=== PATIENT | female | born 1935 | race Caucasian/White ===

== ENCOUNTER 2017-07-26 19:40 | Inpatient (IN) | payer MEDICARE, BC ==
[~2017-07-26] VITALS: Ht 165.1 cm; Wt 77.8 kg
[~2017-07-26 19:40] MED LIST: AMLO2.5T PO; PROP40TA3 PO; WARF-60 PO
[2017-07-26 19:49] VITALS: BP 179/96; PULSE 115; RESP 26; TEMP 98.7; O2SAT 87
[2017-07-26] MEDS: RESP: ALBUTEROL 2.5 MG/IPRATROPIUM 0.5 MG NEB (SCH) INH (20:10)
[2017-07-26 20:11] VITALS: O2SAT 92
[2017-07-26] MEDS ORDERED: ONDANSETRON HCL 4 MG/2 ML VIAL IV PUSH ONE (20:15)
[2017-07-26] MEDS ORDERED: MORPHINE SULFATE 4 MG/ML INJ IV PUSH ONE ×2 (20:15→22:30)
[2017-07-26] MEDS ORDERED: AMLO2.5T PO (20:20)
[2017-07-26] MEDS ORDERED: PROP40TA3 PO (20:20)
[2017-07-26] MEDS ORDERED: WARF-60 PO (20:20)
--- NOTE | 2017-07-26 20:24 | PD ---
HPI Chief Complaint: Fall Time Seen by Provider: 20:00 Travel History International Travel<30 days: No Contact w/Intl Traveler<30days: No Traveled to known affect area: No History of Present Illness HPI 82-year-old female presents for evaluation of a mechanical fall. She reports that today she was attempting to open a reclining chair when it knocked her over and she landed on her left hip. Denies any head trauma or loss of consciousness. She is complaining of left hip pain which is constant, sharp, worse with movement. Denies headache, neck pain, back pain, chest pain or shortness of breath, nausea or vomiting. She appears to have a history of interstitial lung disease. Pulse oximetry is noted to be 89% on room air, she had a pulmonary function test on May 26, 2016 revealing a baseline oxygen saturation of 89% on room air. She is not on home oxygen. No other complaints. PFSH Past Medical History Hx Anticoagulant Therapy: Yes Arthritis: Yes (LEFT ANKLE & LEFT KNEE.) Asthma: No Atrial Fibrillation: Yes Autoimmune Disease: No Blood Disorders: No Anxiety: Yes Heart Rhythm Problems: Yes (A-FIB) Cancer: No Cardiovascular Problems: Yes (A-FIB) High Cholesterol: No Chest Pain: Yes COPD: No Cerebrovascular Accident: Yes (TIA 1996) Diabetes: No Diminished Hearing: Yes Endocrine: No GERD: Yes Glaucoma: No Genitourinary: Yes Hepatitis: No Hiatal Hernia: No Hypertension: Yes Immune Disorder: No Musculoskeletal: Yes (ARTHRITIS L KNEE) Neurologic: Yes (CENTRAL TERMORS) Psychiatric: No Reproductive: No Respiratory: Yes Sleep Apnea: No Ulcer: No Tetanus Vaccination: Unknown Influenza Vaccination: No ?: Not Menopausal: Yes : 2 Para: 2 Past Surgical History Abdominal Surgery: Yes (HERNIA REPAIR) Appendectomy: Yes Cardiac Surgery: Yes (PACER) Cholecystectomy: Yes ( A TEENAGER. QUESTIONABLE) Ear Surgery: No Endocrine Surgery: No Eye Surgery: Yes (BILATERAL CATARACT SURGERY.) Genitourinary Surgery: No Gynecologic Surgery: Yes (2 LIVE, VAGINAL BIRTHS.) Insulin Pump: No Joint Replacement: No Oral Surgery: Yes (HX 3 TOOTH EXTRACTIONS.) Pacemaker: Yes (ON DEMAND) Thoracic Surgery: Yes (VOCAL CORDS REPAIR 2-4-16) Tonsillectomy: Yes Other Surgery: Yes (UMBILICAL HERNIA REPAIR; VOCAL CHORD SURGERY) Social History Alcohol Use: No Tobacco Use: No Substance Use: No Allergies-Medications (Allergen,Severity, Reaction): Coded Allergies: Sulfa (Sulfonamide Antibiotics) (Unverified Allergy, Severe, Anaphylaxis, 07/26/17) shellfish derived (Unverified Allergy, Severe, EDEMA, 07/26/17) FACIAL cortisone (Unverified Allergy, Intermediate, 07/26/17) Reported Meds & Prescriptions Reported Meds & Active Scripts Active Reported Propranolol (Propranolol HCl) 40 Mg Tab 40 Mg PO DAILY Warfarin 6 Mg Tab 6 Mg PO DAILY Amlodipine (Amlodipine Besylate) 2.5 Mg Tab 2.5 Mg PO DAILY Review of Systems Except as stated in HPI: all other systems reviewed are Neg Physical Exam Narrative GENERAL: Well-developed well-nourished female in no acute distress cervical collar in place laying on backboard. Log rolled off the backboard using spinal precautions. SKIN: Warm and dry. No open wounds, no bruising or soft tissue swelling. HEAD: Atraumatic. Normocephalic. EYES: Pupils equal and round. No scleral icterus. No injection or drainage. ENT: No nasal bleeding or discharge. Mucous membranes pink and moist. NECK: Trachea midline. No JVD. CARDIOVASCULAR: Regular rate and rhythm. No murmur appreciated. RESPIRATORY: No accessory muscle use. Coarse breath sounds bilaterally. GASTROINTESTINAL: Abdomen soft, non-tender, nondistended. Hepatic and splenic margins not palpable. MUSCULOSKELETAL: No obvious deformities. Pain with attempted range of motion of the left hip. Tender to palpation left hip. No tenderness to palpation along the cervical thoracic or lumbar midline spine. 2+ dorsalis pedis pulse bilaterally. NEUROLOGICAL: Awake and alert. No obvious cranial nerve deficits. Motor grossly within normal limits. Normal speech. PSYCHIATRIC: Appropriate mood and affect; insight and judgment normal. Data Data Last Documented VS Vital Signs Date Time Temp Pulse Resp B/P (MAP) Pulse Ox O2 Delivery O2 Flow Rate FiO2 07/27/17 01:00 114 18 137/90 (106) 89 Nasal Cannula 4.00 07/26/17 19:49 98.7 Orders Orders Complete Blood Count With Diff (07/26/17 20:01) Basic Metabolic Panel (Bmp) (07/26/17 20:01) Act Partial Throm Time (Ptt) (07/26/17 20:01) Prothrombin Time / Inr (Pt) (07/26/17 20:01) Magnesium (Mg) (07/26/17 20:01) Iv Access Insert/Monitor (07/26/17 20:01) Electrocardiogram (07/26/17 20:01) Ecg Monitoring (07/26/17 20:01) Oximetry (07/26/17 20:01) Oxygen Administration (07/26/17 20:01) Chest, Single Ap (07/26/17 20:01) Albuterol-Ipratropium Neb (Duoneb Neb) (07/26/17 20:15) Hip, Uni(Ap&Lat) W Ap Pelvis (07/26/17 ) Morphine Inj (Morphine Inj) (07/26/17 20:15) Ondansetron Inj (Zofran Inj) (07/26/17 20:15) Diltiazem Inj (Cardizem Inj) (07/26/17 22:15) Ct Hip W/O Contrast (07/26/17 ) Morphine Inj (Morphine Inj) (07/26/17 22:30) Diltiazem Inj (Cardizem Inj) (07/26/17 22:45) Consult Orthopedic (07/27/17 ) Metoprolol Tartrate Inj (Lopressor Inj) (07/27/17 01:00) NPO (07/27/17 01:00) Morphine Inj (Morphine Inj) (07/27/17 01:00) Dext 5%-Nacl 0.45% 1000 Ml Inj (D5w-1/2 (07/27/17 01:15) (Hub Use Only)Inp Phy Cons/Ref (07/27/17 ) Admit To Inpatient (07/27/17 ) Vital Signs (Adult) Q4H (07/27/17 01:14) Activity Bed Rest (07/27/17 01:14) Curriculum Manager / Telemetry .CONTINUOUS (07/27/17 01:14) Intake + Output STACIE.QSHIFT (07/27/17 01:14) Diet Npo (07/27/17 Breakfast) Sodium Chloride 0.9% Flush (Ns Flush) (07/27/17 01:15) Sodium Chloride 0.9% Flush (Ns Flush) (07/27/17 09:00) Basic Metabolic Panel (Bmp) (07/27/17 06:00) Complete Blood Count With Diff (07/27/17 06:00) Pt Request For Service (07/27/17 01:14) Case Management Consult (07/27/17 01:14) Naloxone Inj (Narcan Inj) (07/27/17 01:15) Inpatient Certification (07/27/17 ) Admit Order (Ed Use Only) (07/27/17 02:02) Labs Laboratory Tests Test 07/26/17 20:10 White Blood Count 8.0 TH/MM3 Red Blood Count 3.91 MIL/MM3 Hemoglobin 12.4 GM/DL Hematocrit 36.5 % Mean Corpuscular Volume 93.3 FL Mean Corpuscular Hemoglobin 31.8 PG Mean Corpuscular Hemoglobin Concent 34.0 % Red Cell Distribution Width 13.7 % Platelet Count 216 TH/MM3 Mean Platelet Volume 8.4 FL Neutrophils (%) (Auto) 73.7 % Lymphocytes (%) (Auto) 14.9 % Monocytes (%) (Auto) 8.1 % Eosinophils (%) (Auto) 2.7 % Basophils (%) (Auto) 0.6 % Neutrophils # (Auto) 5.9 TH/MM3 Lymphocytes # (Auto) 1.2 TH/MM3 Monocytes # (Auto) 0.7 TH/MM3 Eosinophils # (Auto) 0.2 TH/MM3 Basophils # (Auto) 0.1 TH/MM3 CBC Comment DIFF FINAL Differential Comment Prothrombin Time 18.3 SEC Prothromb Time International Ratio 1.6 RATIO Activated Partial Thromboplast Time 30.6 SEC Blood Urea Nitrogen 16 MG/DL Creatinine 0.96 MG/DL Random Glucose 208 MG/DL Calcium Level 8.7 MG/DL Magnesium Level 2.0 MG/DL Sodium Level 136 MEQ/L Potassium Level 3.9 MEQ/L Chloride Level 104 MEQ/L Carbon Dioxide Level 24.0 MEQ/L Anion Gap 8 MEQ/L Estimat Glomerular Filtration Rate 56 ML/MIN MDM Medical Decision Making Medical Screen Exam Complete: Yes Emergency Medical Condition: Yes Medical Record Reviewed: Yes Differential Diagnosis Hip fracture, dislocation, contusion, retroperitoneal hematoma Narrative Course 82-year-old female presents after mechanical fall with left hip pain. She is awake and alert and provides excellent history. On examination she has pain with passive manipulation of the left hip. She has no tenderness to palpation along the neck or back and no evidence of head trauma. Plan is for basic lab work, EKG, hips/pelvis x-ray. EKG reveals atrial fibrillation with RVR with a rate of 1:15, she does have a history of atrial fibrillation appears to be on propranolol and Coumadin. She was given a diltiazem bolus and her improved into the 90s. Hip/pelvis x-ray reveals CONCLUSION: 1. Due to patient positioning, trochanteric spurring and internal rotation of the left femur, the hip is incompletely evaluated. No obvious fracture on the cross table lateral, however. 2. I would recommend CT scan of the left hip for further characterization. Therefore CT of the hip has been ordered. INR is subtherapeutic at 1.6. 2300: At the end of my shift the patient was signed out to my attending physician pending CT imaging. Marc Patel Jul 26, 2017 20:24
[2017-07-26 20:41] LABS: AUTOMATED NEUTROPHIL # 5.9 TH/MM3 (1.8-7.7); BASOPHIL # 0.1 TH/MM3 (0-0.2); BASOPHIL % 0.6 % (0.0-2.0); EOSINOPHIL # 0.2 TH/MM3 (0-0.4); EOSINOPHIL % 2.7 % (0.0-4.0); HEMATOCRIT 36.5 % (35.0-46.0); HEMO FLAGS DIFF FINAL; LYMPH % 14.9 % (9.0-44.0); LYMPHOCYTE # 1.2 TH/MM3 (1.0-4.8); MEAN CELL VOLUME 93.3 FL (80.0-100.0); MEAN CORPUSCULAR HEMOGLOBIN 31.8 PG (27.0-34.0); MONO % 8.1 % (0.0-8.0); NEUT % 73.7 % (16.0-70.0); PLATELET COUNT 216 TH/MM3 (150-450); RED BLOOD COUNT 3.91 MIL/MM3 (4.00-5.30); RED CELL DISTRIBUTION WIDTH 13.7 % (11.6-17.2)
[2017-07-26 20:47] LABS: APTT (PATIENT) 30.6 SEC (24.3-30.1); INTERNATIONAL NORMALIZED RATIO 1.6 RATIO; PROTHROMBIN TIME - PATIENT 18.3 SEC (9.8-11.6)
[2017-07-26 20:53] LABS: POTASSIUM 3.9 MEQ/L (3.5-5.1)
--- NOTE | 2017-07-26 22:03 | RADRPT ---
EXAM DATE/TIME: 07/26/2017 21:15 [facility] COMPARISON: CHEST SINGLE AP, May 09, 2016, 10:35. INDICATIONS : Left hip pain status post fall today. MEDICAL HISTORY : Afib. Tremors. SURGICAL HISTORY : Ankle surgery, left. Pacemaker. Appendectomy. Tonsillectomy. Umbilical hernia repair. ENCOUNTER: Initial ACUITY: 1 day PAIN SCORE: 10/10 LOCATION: Left hip. FINDINGS: A single view of the chest demonstrates stable interstitial prominence throughout both lungs suggesti ng some degree of fibrosis. No confluent infiltrate or effusion. Heart size is prominent. Left subcla vian unipolar pacer is radiographically intact. Degenerative spurring of the dorsal spine. Osseous st ructures are otherwise intact. CONCLUSION: 1. Stable interstitial prominence suggesting some degree of fibrosis. No superimposed acute infiltrat e. 2. Compensated cardiomegaly Alo Weiner MD on July 26, 2017 at 21:59 Board Certified Radiologist. This report was verified electronically.
--- NOTE | 2017-07-26 22:10 | RADRPT ---
EXAM DATE/TIME: 07/26/2017 21:15 [facility] COMPARISON: No previous studies available for comparison. INDICATIONS : Left hip pain status post fall today. MEDICAL HISTORY : Afib. Tremors. SURGICAL HISTORY : Ankle surgery, left. Pacemaker. Appendectomy. Tonsillectomy. Umbilical hernia repair. ENCOUNTER: Initial ACUITY: 1 day PAIN SCORE: 10/10 LOCATION: Left hip. FINDINGS: Examination of the left hip was performed with AP Pelvis. On the frontal projections, the hip appears to be held in internal rotation and therefore, is poorly profiled. There appears to be a prominent g reater trochanteric spur which obscures the anatomic neck. I was concern that there may be a step off at the base of the neck however, on the cross table lateral, the neck is well profiled and I cannot confirm an obvious fracture in this projection. CONCLUSION: 1. Due to patient positioning, trochanteric spurring and internal rotation of the left femur, the hip is incompletely evaluated. No obvious fracture on the cross table lateral, however. 2. I would recommend CT scan of the left hip for further characterization. Alo Weiner MD on July 26, 2017 at 22:01 Board Certified Radiologist. This report was verified electronically.
[2017-07-26] MEDS ORDERED: DILTIAZEM HCL 25 MG/5 ML VIAL IV PUSH ONE ×2 (22:15→22:45)
--- NOTE | 2017-07-26 23:30 | RADRPT ---
EXAM DATE/TIME: 07/26/2017 23:02 [facility] COMPARISON: HIP LEFT (AP&LAT 2/3VWS) W AP PELVIS, July 26, 2017, 21:15. INDICATIONS : Evaluate left hip fracture. RADIATION DOSE: 21.29 CTDIvol (mGy) MEDICAL HISTORY : Cerebrovascular disease. SURGICAL HISTORY : Pacemaker. ENCOUNTER: Initial ACUITY: 1 day PAIN SCALE: 10/10 LOCATION: Left hip TECHNIQUE: Volumetric scanning of the hip was performed. Using automated exposure control and adjustment of the mA and/or kV according to patient size, radiation dose was kept as low as reasonably achievable to o btain optimal diagnostic quality images. DICOM format image data is available electronically for rev iew and comparison. FINDINGS: BONES: There is fracturing at the left subcapital femoral neck region. No other fracture seen. JOINTS: No evidence of joint narrowing or effusion. SOFT TISSUES: Muscles, tendons and neurovascular structures are grossly unremarkable. No evidence of mass, organize d fluid collection, or foreign body. CONCLUSION: Left subcapital femoral neck fracture. Viral Steiner MD on July 26, 2017 at 23:27 Board Certified Radiologist. This report was verified electronically.
[2017-07-27] VITALS (11 sets, daily range): BP systolic 137–176; BP diastolic 79–94; PULSE 83–126; RESP 15–20; O2SAT 89–95
--- NOTE | 2017-07-27 00:46 | PD ---
Physical Exam Date Seen by Provider: Jul 26, 2017 Time Seen by Provider: 00:23 Narrative pt has femoral neck fracture and needs admit for rapid afib and orthopedic surgery Data Data Last Documented VS Vital Signs Date Time Temp Pulse Resp B/P (MAP) Pulse Ox O2 Delivery O2 Flow Rate FiO2 07/26/17 20:11 92 Nasal Cannula 4.00 07/26/17 19:55 26 07/26/17 19:49 98.7 115 179/96 (123) Orders Orders Complete Blood Count With Diff (07/26/17 20:01) Basic Metabolic Panel (Bmp) (07/26/17 20:01) Act Partial Throm Time (Ptt) (07/26/17 20:01) Prothrombin Time / Inr (Pt) (07/26/17 20:01) Magnesium (Mg) (07/26/17 20:01) Iv Access Insert/Monitor (07/26/17 20:01) Electrocardiogram (07/26/17 20:01) Ecg Monitoring (07/26/17 20:01) Oximetry (07/26/17 20:01) Oxygen Administration (07/26/17 20:01) Chest, Single Ap (07/26/17 20:01) Albuterol-Ipratropium Neb (Duoneb Neb) (07/26/17 20:15) Hip, Uni(Ap&Lat) W Ap Pelvis (07/26/17 ) Morphine Inj (Morphine Inj) (07/26/17 20:15) Ondansetron Inj (Zofran Inj) (07/26/17 20:15) Diltiazem Inj (Cardizem Inj) (07/26/17 22:15) Ct Hip W/O Contrast (07/26/17 ) Morphine Inj (Morphine Inj) (07/26/17 22:30) Diltiazem Inj (Cardizem Inj) (07/26/17 22:45) Consult Orthopedic (07/27/17 ) Metoprolol Tartrate Inj (Lopressor Inj) (07/27/17 01:00) NPO (07/27/17 01:00) Morphine Inj (Morphine Inj) (07/27/17 01:00) Dext 5%-Nacl 0.45% 1000 Ml Inj (D5w-1/2 (07/27/17 01:15) (Hub Use Only)Inp Phy Cons/Ref (07/27/17 ) Admit To Inpatient (07/27/17 ) Vital Signs (Adult) Q4H (07/27/17 01:14) Activity Bed Rest (07/27/17 01:14) Forms Builder / Telemetry .CONTINUOUS (07/27/17 01:14) Intake + Output STACIE.QSHIFT (07/27/17 01:14) Diet Npo (07/27/17 Breakfast) Sodium Chloride 0.9% Flush (Ns Flush) (07/27/17 01:15) Sodium Chloride 0.9% Flush (Ns Flush) (07/27/17 09:00) Basic Metabolic Panel (Bmp) (07/27/17 06:00) Complete Blood Count With Diff (07/27/17 06:00) Pt Request For Service (07/27/17 01:14) Case Management Consult (07/27/17 01:14) Naloxone Inj (Narcan Inj) (07/27/17 01:15) Inpatient Certification (07/27/17 ) Admit Order (Ed Use Only) (07/27/17 02:02) Labs Laboratory Tests Test 07/26/17 20:10 White Blood Count 8.0 TH/MM3 Red Blood Count 3.91 MIL/MM3 Hemoglobin 12.4 GM/DL Hematocrit 36.5 % Mean Corpuscular Volume 93.3 FL Mean Corpuscular Hemoglobin 31.8 PG Mean Corpuscular Hemoglobin Concent 34.0 % Red Cell Distribution Width 13.7 % Platelet Count 216 TH/MM3 Mean Platelet Volume 8.4 FL Neutrophils (%) (Auto) 73.7 % Lymphocytes (%) (Auto) 14.9 % Monocytes (%) (Auto) 8.1 % Eosinophils (%) (Auto) 2.7 % Basophils (%) (Auto) 0.6 % Neutrophils # (Auto) 5.9 TH/MM3 Lymphocytes # (Auto) 1.2 TH/MM3 Monocytes # (Auto) 0.7 TH/MM3 Eosinophils # (Auto) 0.2 TH/MM3 Basophils # (Auto) 0.1 TH/MM3 CBC Comment DIFF FINAL Differential Comment Prothrombin Time 18.3 SEC Prothromb Time International Ratio 1.6 RATIO Activated Partial Thromboplast Time 30.6 SEC Blood Urea Nitrogen 16 MG/DL Creatinine 0.96 MG/DL Random Glucose 208 MG/DL Calcium Level 8.7 MG/DL Magnesium Level 2.0 MG/DL Sodium Level 136 MEQ/L Potassium Level 3.9 MEQ/L Chloride Level 104 MEQ/L Carbon Dioxide Level 24.0 MEQ/L Anion Gap 8 MEQ/L Estimat Glomerular Filtration Rate 56 ML/MIN MDM Supervised Visit with MAUREEN: Yes Differential Diagnosis left femotral neck fracture and rapid afib Diagnosis Primary Impression: Hip fracture, left Qualified Codes: S72.002A - Fracture of unspecified part of neck of left femur , initial encounter for closed fracture Additional Impressions: Fractured femoral neck Qualified Codes: S72.002A - Fracture of unspecified part of neck of left femur , initial encounter for closed fracture Afib Qualified Codes: I48.2 - Chronic atrial fibrillation Admitting Information Admitting Physician Requests: Admit Condition: Stable Vega Butt MD Jul 27, 2017 00:46
[2017-07-27] MEDS ORDERED: MORPHINE SULFATE 4 MG/ML INJ IV ONE (01:00)
[2017-07-27] MEDS ORDERED: METOPROLOL TARTRATE 5 MG/5 ML VIAL IV PUSH ONE ×2 (01:00→02:30)
[2017-07-27] MEDS ORDERED: SODIUM CHLORIDE 0.9% FLUSH 10 ML FLUSH IV FLUSH PRN (01:15)
[2017-07-27] MEDS ORDERED: NALOXONE HCL 0.4 MG/ML AMP IV PUSH PRN (01:15)
[2017-07-27] MEDS ORDERED: METOPROLOL TARTRATE 25 MG TAB PO ONE ×2 (02:30→16:30)
[2017-07-27] MEDS: DEXT 5%-NACL 0.45% 1000 ML INJ 1,000 ML IV SCH (02:54)
[2017-07-27 06:01] LABS: AUTOMATED NEUTROPHIL # 8.3 TH/MM3 (1.8-7.7); BASOPHIL # 0.1 TH/MM3 (0-0.2); BASOPHIL % 0.6 % (0.0-2.0); EOSINOPHIL # 0.1 TH/MM3 (0-0.4); EOSINOPHIL % 1.1 % (0.0-4.0); HEMATOCRIT 36.3 % (35.0-46.0); HEMO FLAGS DIFF FINAL; LYMPH % 11.8 % (9.0-44.0); LYMPHOCYTE # 1.3 TH/MM3 (1.0-4.8); MEAN CELL VOLUME 94.7 FL (80.0-100.0); MEAN CORPUSCULAR HEMOGLOBIN 32.1 PG (27.0-34.0); MEAN CORPUSCULAR HGB CONC 33.9 % (32.0-36.0); MONO % 9.1 % (0.0-8.0); NEUT % 77.4 % (16.0-70.0); PLATELET COUNT 212 TH/MM3 (150-450); RED BLOOD COUNT 3.83 MIL/MM3 (4.00-5.30); RED CELL DISTRIBUTION WIDTH 13.5 % (11.6-17.2); WHITE BLOOD COUNT 10.7 TH/MM3 (4.0-11.0)
[2017-07-27 06:29] LABS: POTASSIUM 3.9 MEQ/L (3.5-5.1)
[2017-07-27] MEDS: SODIUM CHLORIDE 0.9% FLUSH 10 ML FLUSH IV FLUSH SCH ×2 (09:00→21:00)
--- NOTE | 2017-07-27 09:34 | HHI.HP ---
[facility] Cedric Herrera MD Admission Diagnosis femoral fracture and RVR afib Diagnoses: Chief Complaint: Status post fall Travel History International Travel<30 Days: No Contact w/Intl Traveler <30 Da: No Traveled to Known Affected Are: No History of Present Illness This is a pleasant 82-year-old female presents for evaluation of a mechanical fall. She reports that today she was attempting to open a reclining chair when it knocked her over and she landed on her left hip. Denies any head trauma or loss of consciousness. She is complaining of left hip pain which is constant, sharp, worse with movement. Denies headache, neck pain, back pain , chest pain or shortness of breath, nausea or vomiting. She appears to have a history of interstitial lung disease. Pulse oximetry is noted to be 89% on room air, she had a pulmonary function test on May 26, 2016 revealing a baseline oxygen saturation of 89% on room air. She is not on home oxygen. No other complaints. Seen in Emergency room in the presence of her Mr. Murtaza Vázquez, she is having Bronchodilator, Mucolytic, incentive spirometry, she states her Primary operations specialist is Doctor Laron Skinner may need consult depend of Clinical course, also has Atrial Fibrillation with RVR, at this time NPO for probable intervention later today not yet seen by Orthopedic Surgery and her INR subtherapeutic in 1.6 Review of Systems Constitutional: DENIES: Fever, Chills, Change in appetite Endocrine: DENIES: Heat/cold intolerance Eyes: DENIES: Blurred vision, Eye pain Musculoskeletal: COMPLAINS OF: Joint pain Except as stated in HPI: all other systems reviewed are Neg Past Family Social History Past Medical History OA Atrial Fibrillation on chronic anticoagulation with Warfarin Anxiety disorder 1996 GERD Hypertension essential tremor Interstitial Lung disease Past Surgical History Appendectomy Pacemaker placement 12/30/15 Bilateral Cataract surgery Umbilical hernia repair 30 years ago Vocal cord surgery 10/01/15 Tooth extractions. Reported Medications Reported Meds & Active Scripts Active Reported Propranolol (Propranolol HCl) 40 Mg Tab 40 Mg PO DAILY Warfarin 6 Mg Tab 6 Mg PO DAILY Amlodipine (Amlodipine Besylate) 2.5 Mg Tab 2.5 Mg PO DAILY Allergies: Coded Allergies: Sulfa (Sulfonamide Antibiotics) (Unverified Allergy, Severe, Anaphylaxis, 07/26/17) shellfish derived (Unverified Allergy, Severe, EDEMA, 07/26/17) FACIAL cortisone (Unverified Allergy, Intermediate, 07/26/17) Active Ordered Medications Current Medications Medications (Trade) Dose Ordered Sig/Deisy Route Start Time Stop Time Status Last Admin Dextrose/Sodium Chloride 1,000 ml @ 42 mls/hr [id number] IV 07/27/17 01:15 07/27/17 02:54 (NS Flush) 2 ml UNSCH PRN IV FLUSH 07/27/17 01:15 (NS Flush) 2 ml BID IV FLUSH 07/27/17 09:00 07/27/17 09:00 (Narcan Inj) 0.4 mg UNSCH PRN IV PUSH 07/27/17 01:15 Family History Asked and denied. Social History Lives with her present at this time here Denies any toxic habits. Physical Exam Vital Signs Vital Signs Date Time Temp Pulse Resp B/P (MAP) Pulse Ox O2 Delivery O2 Flow Rate FiO2 07/27/17 04:00 94 15 176/81 (112) 93 Nasal Cannula 4.00 07/27/17 01:00 114 18 137/90 (106) 89 Nasal Cannula 4.00 07/26/17 20:11 92 Nasal Cannula 4.00 07/26/17 20:03 90 Nasal Cannula 4.00 07/26/17 19:55 26 87 Nasal Cannula 07/26/17 19:49 98.7 115 26 179/96 (123) 87 Physical Exam GENERAL: Well-developed well-nourished female in no acute distress cervical collar in place laying on backboard. Log rolled off the backboard using spinal precautions. SKIN: Warm and dry. No open wounds, no bruising or soft tissue swelling. HEAD: Atraumatic. Normocephalic. EYES: Pupils equal and round. No scleral icterus. No injection or drainage. ENT: No nasal bleeding or discharge. Mucous membranes pink and moist. NECK: Trachea midline. No JVD. CARDIOVASCULAR: Regular rate and rhythm. No murmur appreciated. RESPIRATORY: No accessory muscle use. Coarse breath sounds bilaterally. GASTROINTESTINAL: Abdomen soft, non-tender, nondistended. Hepatic and splenic margins not palpable. MUSCULOSKELETAL: No obvious deformities. Pain with attempted range of motion of the left hip. Tender to palpation left hip. No tenderness to palpation along the cervical thoracic or lumbar midline spine. 2+ dorsalis pedis pulse bilaterally. externally rotated left leg. NEUROLOGICAL: Awake and alert. No obvious cranial nerve deficits. Motor grossly within normal limits. Normal speech. PSYCHIATRIC: Appropriate mood and affect; insight and judgment normal. Laboratory Laboratory Tests Test 07/26/17 20:10 07/27/17 05:30 White Blood Count 8.0 10.7 Red Blood Count 3.91 3.83 Hemoglobin 12.4 12.3 Hematocrit 36.5 36.3 Mean Corpuscular Volume 93.3 94.7 Mean Corpuscular Hemoglobin 31.8 32.1 Mean Corpuscular Hemoglobin Concent 34.0 33.9 Red Cell Distribution Width 13.7 13.5 Platelet Count 216 212 Mean Platelet Volume 8.4 8.6 Neutrophils (%) (Auto) 73.7 77.4 Lymphocytes (%) (Auto) 14.9 11.8 Monocytes (%) (Auto) 8.1 9.1 Eosinophils (%) (Auto) 2.7 1.1 Basophils (%) (Auto) 0.6 0.6 Neutrophils # (Auto) 5.9 8.3 Lymphocytes # (Auto) 1.2 1.3 Monocytes # (Auto) 0.7 1.0 Eosinophils # (Auto) 0.2 0.1 Basophils # (Auto) 0.1 0.1 CBC Comment DIFF FINAL DIFF FINAL Differential Comment Prothrombin Time 18.3 Prothromb Time International Ratio 1.6 Activated Partial Thromboplast Time 30.6 Blood Urea Nitrogen 16 14 Creatinine 0.96 0.70 Random Glucose 208 155 Calcium Level 8.7 8.7 Magnesium Level 2.0 Sodium Level 136 136 Potassium Level 3.9 3.9 Chloride Level 104 102 Carbon Dioxide Level 24.0 25.0 Anion Gap 8 9 Estimat Glomerular Filtration Rate 56 80 Result Diagram: 07/27/1752907/27/17529 Imaging Last Impressions Chest X-Ray 07/26/172000 Signed Impressions: Service Date/Time: Wednesday, July 26, 2017 21:15 - CONCLUSION: 1. Stable interstitial prominence suggesting some degree of fibrosis. No superimposed acute infiltrate. 2. Compensated cardiomegaly Alo Weiner MD Lower Extremity CT 07/26/17 0000 Signed Impressions: Service Date/Time: Wednesday, July 26, 2017 23:02 - CONCLUSION: Left subcapital femoral neck fracture. Viral Steiner MD Hip and Pelvis X-Ray 07/26/17 0000 Signed Impressions: Service Date/Time: Wednesday, July 26, 2017 21:15 - CONCLUSION: 1. Due to patient positioning, trochanteric spurring and internal rotation of the left femur, the hip is incompletely evaluated. No obvious fracture on the cross table lateral, however. 2. I would recommend CT scan of the left hip for further characterization. Alo Weienr MD Caprini VTE Risk Assessment Caprini VTE Risk Assessment: Mod/High Risk (score >= 2) Caprini Risk Assessment Model Point Value = 1 Point Value = 2 Point Value = 3 Point Value = 5 Age 41-60 Minor surgery BMI > 25 kg/m2 Swollen legs Varicose veins or History of unexplained or recurrent spontaneous Oral contraceptives or hormone replacement Sepsis (< 1 month) Serious lung disease, including pneumonia (< 1 month) Abnormal pulmonary function Acute myocardial infarction Congestive heart failure (< 1 month) History of inflammatory bowel disease Medical patient at bed rest Age 61-74 Arthroscopic surgery Major open surgery (> 45 min) Laparoscopic surgery (> 45 min) Malignancy Confined to bed (> 72 hours) Immobilizing plaster cast Central venous access Age >= 75 History of VTE Family history of VTE Factor V Leiden Prothrombin [id number] Lupus anticoagulant Anticardiolipin antibodies Elevated serum homocysteine Heparin-induced thrombocytopenia Other congenital or acquired thrombophilia Stroke (< 1 month) Elective arthroplasty Hip, pelvis, or leg fracture Acute spinal cord injury (< 1 month) Prophylaxis Regimen Total Risk Factor Score Risk Level Prophylaxis Regimen 0-1 Low Early ambulation 2 Moderate Order ONE of the following: *Sequential Compression Device (SCD) *Heparin 5000 units SQ BID 3-4 Higher Order ONE of the following medications: *Heparin 5000 units SQ TID *Enoxaparin/Lovenox 40 mg SQ daily (WT < 150 kg, CrCl > 30 mL/min) *Enoxaparin/Lovenox 30 mg SQ daily (WT < 150 kg, CrCl > 10-29 mL/min) *Enoxaparin/Lovenox 30 mg SQ BID (WT < 150 kg, CrCl > 30 mL/min) AND/OR *Sequential Compression Device (SCD) 5 or more Highest Order ONE of the following medications: *Heparin 5000 units SQ TID (Preferred with Epidurals) *Enoxaparin/Lovenox 40 mg SQ daily (WT < 150 kg, CrCl > 30 mL/min) *Enoxaparin/Lovenox 30 mg SQ daily (WT < 150 kg, CrCl > 10-29 mL/min) *Enoxaparin/Lovenox 30 mg SQ BID (WT < 150 kg, CrCl > 30 mL/min) AND *Sequential Compression Device (SCD) Assessment and Plan Assessment and Plan 1. Status post Mechanical Fall had Left Trochanteric Femur fracture, asked for Orthopedic Surgery evaluation, awaiting final recommendations discussed with nurse Miss Chester to body recall instructor. if procedure will be performed today. 2. Atrial Fibrillation with RVR, she is on Propranolol at home, at this time on Cardizem drip and consulted her Primary sensor specialist Doctor Garrick Larson, INR subtherapeutic in 1.6 3. OA by history 4. Anxiety disorder to continue Home medicines 5. GERD on Gastric protection with Famotidine 6. Hypertension at this time NPO on Cardizem drip 7. Interstitial Lung Disease on Bronchodilator, Mucolytic and incentive spirometry, DVT prophylaxis with SCDs awaiting for procedure later today or in am tomorrow. Code Status Full Code. Discussed Condition With Patient, her Mr. Murtaza Vázquez and nurse Miss Chester. Physician Certification 2 Midnight Certification Type: Admission for Inpatient Services Order for Inpatient Services The services are ordered in accordance with Medicare regulations or non- Medicare payer requirements, as applicable. In the case of services not specified as inpatient-only, they are appropriately provided as inpatient services in accordance with the 2-midnight benchmark. Estimated LOS (days): 3 days is the estimated time the patient will need to remain in the hospital, assuming treatment plan goals are met and no additional complications. Post-Hospital Plan: Not yet determined Gokul Mark MD Jul 27, 2017 09:33
[2017-07-27] MEDS: DILTIAZEM INJ 125 MG in SODIUM CHLORIDE 0.9% INJ 100 ML IV PRN (14:19)
[2017-07-27] MEDS ORDERED: MORPHINE SULFATE 4 MG/ML INJ ONE (14:52)
[2017-07-27] MEDS ORDERED: METOPROLOL TARTRATE 5 MG/5 ML VIAL ONE (15:09)
[2017-07-27] MEDS: RESP: BUDESONIDE 0.5 MG/2 ML NEB NEB SCH ×2 (15:15→20:40)
[2017-07-27] MEDS: FAMOTIDINE 20 MG/2 ML VIAL IV PUSH SCH (15:30)
[2017-07-27] MEDS: RESP: IPRATROPIUM 0.5 MG/2.5 ML NEB NEB SCH ×3 (15:45→22:56)
[2017-07-27] MEDS ORDERED: LACTATED RINGER'S 1000 ML INJ 1,000 ML ONE (15:47)
--- NOTE | 2017-07-27 16:09 | PD.CONS ---
HPI Consult Requested By Primary Care Physician Cedric Herrera MD History of Present Illness 82-year-old female with pmhx significnat for Afib on Coumadin admitted after mechanical fall left femoral fracture. She reports that today she was attempting to open a reclining chair when it knocked her over and she landed on her left hip. Denies any head trauma or loss of consciousness. Denies headache, neck pain, back pain, chest pain or shortness of breath, nausea or vomiting. Review of Systems Consitutional: DENIES: Fatigue, Fever, Chills, Weight gain, Weight loss Eyes: DENIES: Amaurosis Fugax, Change in vision HEENT: DENIES: Lightheadedness, Change in hearing Respiratory: DENIES: See HPI, Cough, Snoring, Shortness of breath, Wheezing, Sputum production Cardiovascular: DENIES: See HPI, Chest pain, Palpitations, Syncope, Tachycardia Gastrointestinal: DENIES: Nausea, Vomiting, Change in bowel habits, Reflux, Bloody stools, Melena Genitourinary: DENIES: Urinary incontinence, Difficulty voiding Integumentary: DENIES: Rash Neurologic: DENIES: Tingling or numbness, Memory problems, Poor Balance, Stroke symptoms Musculoskeletal: DENIES: Joint pain, Muscle pain, Limited range of motion, Back pain Psychiatric: DENIES: Anxiety, Depression, Sleep disturbances Hematologic: DENIES: Bruising tendencies, Bleeding tendencies Endocrine: DENIES: Weight gain, Weight loss, Thyroid disease Past Family Social History Allergies: Coded Allergies: Sulfa (Sulfonamide Antibiotics) (Unverified Allergy, Severe, Anaphylaxis, 07/26/17) shellfish derived (Unverified Allergy, Severe, EDEMA, 07/26/17) FACIAL cortisone (Unverified Allergy, Intermediate, 07/26/17) Past Medical History OA Atrial Fibrillation on chronic anticoagulation with Warfarin Anxiety disorder TIA 1996 GERD Hypertension essential tremor Interstitial Lung disease Past Surgical History Appendectomy Pacemaker placement 12/30/15 Bilateral Cataract surgery Umbilical hernia repair 30 years ago Vocal cord surgery 10/01/15 Tooth extractions. Reported Medications Reported Meds & Active Scripts Active Reported Propranolol (Propranolol HCl) 40 Mg Tab 40 Mg PO DAILY Warfarin 6 Mg Tab 6 Mg PO DAILY Amlodipine (Amlodipine Besylate) 2.5 Mg Tab 2.5 Mg PO DAILY Active Ordered Medications Current Medications Medications (Trade) Dose Ordered Sig/Deisy Route Start Time Stop Time Status Last Admin Dextrose/Sodium Chloride 1,000 ml @ 42 mls/hr [id number] IV 07/27/17 01:15 07/27/17 02:54 (NS Flush) 2 ml UNSCH PRN IV FLUSH 07/27/17 01:15 (NS Flush) 2 ml BID IV FLUSH 07/27/17 09:00 07/27/17 09:00 (Narcan Inj) 0.4 mg UNSCH PRN IV PUSH 07/27/17 01:15 Diltiazem HCl 125 mg/Sodium Chloride 125 ml @ 5 mls/hr TITRATE PRN IV 07/27/17 13:30 07/27/17 14:19 (Atrovent Neb) 0.5 mg Q4HR NEB NEB 07/27/17 16:00 (Pulmicort Respule Neb) 0.5 mg Q12HR NEB NEB 07/27/17 13:30 07/27/17 15:15 (Mucinex Er) 600 mg BID PO 07/27/17 13:30 (Pepcid Inj) 20 mg Q12H IV PUSH 07/27/17 14:00 07/27/17 15:30 Family History noncontributory Social History Lives with her present at this time here Denies any toxic habits. Physical Exam Vital Signs Vital Signs Date Time Temp Pulse Resp B/P (MAP) Pulse Ox O2 Delivery O2 Flow Rate FiO2 07/27/17 15:10 89 Nasal Cannula 4 07/27/17 15:10 105 07/27/17 15:00 116 18 157/71 (99) 92 07/27/17 14:30 126 18 149/73 (98) 92 07/27/17 14:19 122 149/79 07/27/17 14:10 126 07/27/17 14:05 99.4 115 18 152/73 (99) 92 07/27/17 14:05 07/27/17 14:02 Nasal Cannula 4 07/27/17 13:58 97 20 169/94 (119) 93 Nasal Cannula 4.00 07/27/17 10:19 97 19 172/79 (110) 95 6.00 07/27/17 04:00 94 15 176/81 (112) 93 Nasal Cannula 4.00 07/27/17 01:00 114 18 137/90 (106) 89 Nasal Cannula 4.00 07/26/17 20:11 92 Nasal Cannula 4.00 07/26/17 20:03 90 Nasal Cannula 4.00 07/26/17 19:55 26 87 Nasal Cannula 07/26/17 19:49 98.7 115 26 179/96 (123) 87 Physical Exam GENERAL: Well-nourished, well-developed patient. SKIN: Warm and dry. HEAD: Normocephalic. EYES: No scleral icterus. No injection or drainage. NECK: Supple, trachea midline. No JVD or lymphadenopathy. CARDIOVASCULAR:Irr Irr without murmurs, gallops, or rubs. RESPIRATORY: Breath sounds equal bilaterally. No accessory muscle use. GASTROINTESTINAL: Abdomen soft, non-tender, nondistended. EXTREMITIES: No cyanosis, or edema. NEUROLOGICAL: Awake, alert, and oriented x 3. Non-focal. Laboratory Laboratory Tests Test 07/26/17 20:10 07/27/17 05:30 White Blood Count 8.0 10.7 Red Blood Count 3.91 3.83 Hemoglobin 12.4 12.3 Hematocrit 36.5 36.3 Mean Corpuscular Volume 93.3 94.7 Mean Corpuscular Hemoglobin 31.8 32.1 Mean Corpuscular Hemoglobin Concent 34.0 33.9 Red Cell Distribution Width 13.7 13.5 Platelet Count 216 212 Mean Platelet Volume 8.4 8.6 Neutrophils (%) (Auto) 73.7 77.4 Lymphocytes (%) (Auto) 14.9 11.8 Monocytes (%) (Auto) 8.1 9.1 Eosinophils (%) (Auto) 2.7 1.1 Basophils (%) (Auto) 0.6 0.6 Neutrophils # (Auto) 5.9 8.3 Lymphocytes # (Auto) 1.2 1.3 Monocytes # (Auto) 0.7 1.0 Eosinophils # (Auto) 0.2 0.1 Basophils # (Auto) 0.1 0.1 CBC Comment DIFF FINAL DIFF FINAL Differential Comment Prothrombin Time 18.3 Prothromb Time International Ratio 1.6 Activated Partial Thromboplast Time 30.6 Blood Urea Nitrogen 16 14 Creatinine 0.96 0.70 Random Glucose 208 155 Calcium Level 8.7 8.7 Magnesium Level 2.0 Sodium Level 136 136 Potassium Level 3.9 3.9 Chloride Level 104 102 Carbon Dioxide Level 24.0 25.0 Anion Gap 8 9 Estimat Glomerular Filtration Rate 56 80 Result Diagram: 07/27/1730 07/27/1730 Imaging Last Impressions Chest X-Ray 07/26/172000 Signed Impressions: Service Date/Time: Wednesday, July 26, 2017 21:15 - CONCLUSION: 1. Stable interstitial prominence suggesting some degree of fibrosis. No superimposed acute infiltrate. 2. Compensated cardiomegaly Alo Weiner MD Lower Extremity CT 07/26/17 0000 Signed Impressions: Service Date/Time: Wednesday, July 26, 2017 23:02 - CONCLUSION: Left subcapital femoral neck fracture. Viral Steiner MD Hip and Pelvis X-Ray 07/26/17 Signed Impressions: Service Date/Time: Wednesday, July 26, 2017 21:15 - CONCLUSION: 1. Due to patient positioning, trochanteric spurring and internal rotation of the left femur, the hip is incompletely evaluated. No obvious fracture on the cross table lateral, however. 2. I would recommend CT scan of the left hip for further characterization. Alo Weiner MD Assessment and Plan Problem List: (1) Afib ICD Codes: I48.91 - Unspecified atrial fibrillation Status: Acute Plan: 82 y/o F with known of atrial fibrillation on Coumadin consulted for afib with RVR in the setting of a mechanical fall/femoral fracture. Awaiting ortho surgery. No CV complaints. Afib currently rate control on Cardizem drip. No need for further cardiovascular work up before surgery. Recommendations: 1. Cont rate control. Wean Cardizem drip to d/c 2. OAC on Hold 3. Admit to Hospitalist service 4. Start Lopressor 25mg PO BID Thank for the opportunity to take part in the care o this patents Will be available a PRN basis for any questions or concerns (2) Anticoagulated on Coumadin ICD Codes: Z51.81 - Encounter for therapeutic drug level monitoring; Z79.01 - [facility] (current) use of anticoagulants Status: Acute (3) Hypertension ICD Codes: I10 - Essential (primary) hypertension Status: Acute (4) Fractured femoral neck ICD Codes: S72.009A - Fracture of unspecified part of neck of unspecified femur , initial encounter for closed fracture Status: Acute Problem Qualifiers (1) Afib: Qualified Codes: I48.2 - Chronic atrial fibrillation (2) Fractured femoral neck: Qualified Codes: S72.002A - Fracture of unspecified part of neck of left femur , initial encounter for closed fracture Blake Wakefield MD Jul 27, 2017 16:09
--- NOTE | 2017-07-27 16:23 | EKG ---
Date Performed: 07/26/2017 Time Performed: 21:54:37 PTAGE: 82 years EKG: ATRIAL FIBRILLATION WITH RAPID VENTRICULAR RESPONSE WITH ABERRANT CONDUCTION OR VENTRICULAR PREMATURE COMPLEXES MARKED RIGHT AXIS DEVIATION ANTEROSEPTAL MYOCARDIAL INFARCTION ABNORMAL ECG Sinc e PREVIOUS TRACING , no significant change noted PREVIOUS TRACIN05/08/2016 02.39 DOCTOR: Dede Mendez Interpretating Date/Time 07/27/2017 16:22:25
--- NOTE | 2017-07-27 16:25 | PD.CONS ---
HPI Service Orthopedic Surgeons Consult Requested By Dr. Brown Reason for Consult Fracture of the left hip Primary Care Physician Cedric Herrera MD Admission Diagnosis femoral fracture and RVR afib Diagnoses: Chief Complaint: Left hip pain History of Present Illness This patient is an 82-year-old female who slipped and fell landing on her left hip. She was unable to ambulate. She is brought to the emergency room and found to have evidence of RVR with a left subcapital displaced femoral neck fracture. In the emergency room she was treated medically. I spoke with the emergency room physician in the middle the night we discussed her case. I saw the patient at around 6:00 this morning. She was seen in the emergency room and room see 31. I spoke with the nursing staff. Consents were obtained for purposes of left hip bipolar replacement. The x-rays and the CT scan showed evidence of displaced subcapital femoral neck fracture. Past Family Social History Past Medical History OA Atrial Fibrillation on chronic anticoagulation with Warfarin Anxiety disorder TIA 1996 GERD Hypertension essential tremor Interstitial Lung disease Past Surgical History Appendectomy Pacemaker placement 12/30/15 Bilateral Cataract surgery Umbilical hernia repair 30 years ago Vocal cord surgery 10/01/15 Tooth extractions. Allergies: Coded Allergies: Sulfa (Sulfonamide Antibiotics) (Unverified Allergy, Severe, Anaphylaxis, 07/26/17) shellfish derived (Unverified Allergy, Severe, EDEMA, 07/26/17) FACIAL cortisone (Unverified Allergy, Intermediate, 07/26/17) Active Ordered Medications Current Medications Medications (Trade) Dose Ordered Sig/Deisy Route Start Time Stop Time Status Last Admin Dextrose/Sodium Chloride 1,000 ml @ 42 mls/hr [id number] IV 07/27/17 01:15 07/27/17 02:54 (NS Flush) 2 ml UNSCH PRN IV FLUSH 07/27/17 01:15 (NS Flush) 2 ml BID IV FLUSH 07/27/17 09:00 07/27/17 09:00 (Narcan Inj) 0.4 mg UNSCH PRN IV PUSH 07/27/17 01:15 Diltiazem HCl 125 mg/Sodium Chloride 125 ml @ 5 mls/hr TITRATE PRN IV 07/27/17 13:30 07/27/17 14:19 (Atrovent Neb) 0.5 mg Q4HR NEB NEB 07/27/17 16:00 (Pulmicort Respule Neb) 0.5 mg Q12HR NEB NEB 07/27/17 13:30 07/27/17 15:15 (Mucinex Er) 600 mg BID PO 07/27/17 13:30 (Pepcid Inj) 20 mg Q12H IV PUSH 07/27/17 14:00 07/27/17 15:30 Reported Meds & Active Scripts Active Reported Propranolol (Propranolol HCl) 40 Mg Tab 40 Mg PO DAILY Warfarin 6 Mg Tab 6 Mg PO DAILY Amlodipine (Amlodipine Besylate) 2.5 Mg Tab 2.5 Mg PO DAILY Family History Asked and denied. Social History Lives with her present at this time here Denies any toxic habits. Physical Exam Vital Signs Vital Signs Date Time Temp Pulse Resp B/P (MAP) Pulse Ox O2 Delivery O2 Flow Rate FiO2 07/27/17 15:10 89 Nasal Cannula 4 07/27/17 15:10 105 07/27/17 15:00 116 18 157/71 (99) 92 07/27/17 14:30 126 18 149/73 (98) 92 07/27/17 14:19 122 149/79 07/27/17 14:10 126 07/27/17 14:05 99.4 115 18 152/73 (99) 92 07/27/17 14:05 07/27/17 14:02 Nasal Cannula 4 07/27/17 13:58 97 20 169/94 (119) 93 Nasal Cannula 4.00 07/27/17 10:19 97 19 172/79 (110) 95 6.00 07/27/17 04:00 94 15 176/81 (112) 93 Nasal Cannula 4.00 07/27/17 01:00 114 18 137/90 (106) 89 Nasal Cannula 4.00 07/26/17 20:11 92 Nasal Cannula 4.00 07/26/17 20:03 90 Nasal Cannula 4.00 07/26/17 19:55 26 87 Nasal Cannula 07/26/17 19:49 98.7 115 26 179/96 (123) 87 Physical Exam This patient is lying in bed and very comfortable. Staffer at the bedside prepared to put in a fully catheter. The left hip is externally rotated and shortened. Some pain with range of motion. Mild swelling. No ecchymosis. No warmth or redness. Status post 1+. Sensation is normal. HEENT: Normocephalic atraumatic pupils equal round reactive. NECK: Supple. No abnormal masses. Full range of motion. CHEST: Clear to auscultation with no rales or rhonchi's or wheezes. HEART: Irregular rhythm and accelerated rate of 100. No murmurs. ABDOMEN: Soft, nontender, no masses. Normal active bowel sounds. GENITOURINARY: Deferred Laboratory Laboratory Tests Test 07/26/17 20:10 07/27/17 05:30 White Blood Count 8.0 10.7 Red Blood Count 3.91 3.83 Hemoglobin 12.4 12.3 Hematocrit 36.5 36.3 Mean Corpuscular Volume 93.3 94.7 Mean Corpuscular Hemoglobin 31.8 32.1 Mean Corpuscular Hemoglobin Concent 34.0 33.9 Red Cell Distribution Width 13.7 13.5 Platelet Count 216 212 Mean Platelet Volume 8.4 8.6 Neutrophils (%) (Auto) 73.7 77.4 Lymphocytes (%) (Auto) 14.9 11.8 Monocytes (%) (Auto) 8.1 9.1 Eosinophils (%) (Auto) 2.7 1.1 Basophils (%) (Auto) 0.6 0.6 Neutrophils # (Auto) 5.9 8.3 Lymphocytes # (Auto) 1.2 1.3 Monocytes # (Auto) 0.7 1.0 Eosinophils # (Auto) 0.2 0.1 Basophils # (Auto) 0.1 0.1 CBC Comment DIFF FINAL DIFF FINAL Differential Comment Prothrombin Time 18.3 Prothromb Time International Ratio 1.6 Activated Partial Thromboplast Time 30.6 Blood Urea Nitrogen 16 14 Creatinine 0.96 0.70 Random Glucose 208 155 Calcium Level 8.7 8.7 Magnesium Level 2.0 Sodium Level 136 136 Potassium Level 3.9 3.9 Chloride Level 104 102 Carbon Dioxide Level 24.0 25.0 Anion Gap 8 9 Estimat Glomerular Filtration Rate 56 80 Result Diagram: 07/27/1730 07/27/1730 Imaging X-rays and CT reviewed and reviewed with the radiologist interpretation shows evidence of a subcapital left femoral neck fracture with moderate displacement. Mild osteopenia is suspect. The radiologist's interpretation is in agreement Assessment & Plan Assessment and Plan Left femoral neck fracture, subcapital, displaced. Atrial fibrillation with rapid response. Coumadin coagulopathy, INR 1.6 PLAN: Medical evaluation and treatment for underlying Coumadin coagulopathy. Medical treatment for elevated heart rate. Surgery: Left hip bipolar replacement arthroplasty. Consent: There are risks with surgery including infection bleeding loss of motion continued pain and need for further surgery dislocation failure of components failure bone. Leg length discrepancies are a possibility. Neurologic or vascular injury is possible. If the surgery is not cleared for surgical treatment today, surgery may be necessary tomorrow by one of my partners. I will be out of town Efrain Garcia MD Jul 27, 2017 16:25
--- NOTE | 2017-07-27 16:26 | PD.CONS ---
HPI Service Critical Care Medicine Consult Requested By [facility] Reason for Consult Unstable hemodynamics. Primary Care Physician Cedric Herrera MD History of Present Illness 82 y/o woman fell while tangled with a folding chair. No syncope. She sustained a left subcapital hip fracture seen best on hip CT scan. Plan repair of hip fracture delayed due to unstable cardiac rhythm, rapid ventricular rate. Started on cardizem gtt infusion in PACU, will be transported to [facility]. She has permanent a-fib and takes propranolol and coumadin. INR subtherapeutic on arrival. Past Family Social History Allergies: Coded Allergies: Sulfa (Sulfonamide Antibiotics) (Unverified Allergy, Severe, Anaphylaxis, 07/26/17) shellfish derived (Unverified Allergy, Severe, EDEMA, 07/26/17) FACIAL cortisone (Unverified Allergy, Intermediate, 07/26/17) Past Medical History Past Medical History Hx Anticoagulant Therapy: Yes Arthritis: Yes (LEFT ANKLE & LEFT KNEE.) Asthma: No Atrial Fibrillation: Yes Autoimmune Disease: No Blood Disorders: No Anxiety: Yes Heart Rhythm Problems: Yes (A-FIB) Cancer: No Cardiovascular Problems: Yes (A-FIB) High Cholesterol: No Chest Pain: Yes COPD: No Cerebrovascular Accident: Yes (TIA 1996) Diabetes: No Diminished Hearing: Yes Endocrine: No GERD: Yes Hypertension: Yes Immune Disorder: No Musculoskeletal: Yes (ARTHRITIS L KNEE) Neurologic: Yes (CENTRAL TERMORS) Respiratory: Yes ?: Not Menopausal: Yes : 2 Para: 2 Past Surgical History Abdominal Surgery: Yes (HERNIA REPAIR) Appendectomy: Yes Cardiac Surgery: Yes (PACER) Cholecystectomy: Yes ( A TEENAGER. QUESTIONABLE) Ear Surgery: No Endocrine Surgery: No Eye Surgery: Yes (BILATERAL CATARACT SURGERY.) Genitourinary Surgery: No Gynecologic Surgery: Yes (2 LIVE, VAGINAL BIRTHS.) Insulin Pump: No Joint Replacement: No Oral Surgery: Yes (HX 3 TOOTH EXTRACTIONS.) Pacemaker: Yes (ON DEMAND) Thoracic Surgery: Yes (VOCAL CORDS REPAIR 2-4-16) Tonsillectomy: Yes Other Surgery: Yes (UMBILICAL HERNIA REPAIR; VOCAL CHORD SURGERY) Social History Alcohol Use: No Tobacco Use: No Substance Use: No Allergies-Medications Allergies-Medications (Allergen,Severity, Reaction): Coded Allergies: Sulfa (Sulfonamide Antibiotics) (Unverified Allergy, Severe, Anaphylaxis, 07/26/17) shellfish derived (Unverified Allergy, Severe, EDEMA, 07/26/17) FACIAL cortisone (Unverified Allergy, Intermediate, 07/26/17) Reported Meds & Prescriptions Reported Meds & Active Scripts Active Reported Propranolol (Propranolol HCl) 40 Mg Tab 40 Mg PO DAILY Warfarin 6 Mg Tab 6 Mg PO DAILY Amlodipine (Amlodipine Besylate) 2.5 Mg Tab 2.5 Mg PO DAILY Physical Exam Vital Signs Vital Signs Date Time Temp Pulse Resp B/P (MAP) Pulse Ox O2 Delivery O2 Flow Rate FiO2 07/27/17 15:10 89 Nasal Cannula 4 07/27/17 15:10 105 07/27/17 15:00 116 18 157/71 (99) 92 07/27/17 14:30 126 18 149/73 (98) 92 07/27/17 14:19 122 149/79 07/27/17 14:10 126 07/27/17 14:05 99.4 115 18 152/73 (99) 92 07/27/17 14:05 07/27/17 14:02 Nasal Cannula 4 07/27/17 13:58 97 20 169/94 (119) 93 Nasal Cannula 4.00 07/27/17 10:19 97 19 172/79 (110) 95 6.00 07/27/17 04:00 94 15 176/81 (112) 93 Nasal Cannula 4.00 07/27/17 01:00 114 18 137/90 (106) 89 Nasal Cannula 4.00 07/26/17 20:11 92 Nasal Cannula 4.00 07/26/17 20:03 90 Nasal Cannula 4.00 07/26/17 19:55 26 87 Nasal Cannula 07/26/17 19:49 98.7 115 26 179/96 (123) 87 Physical Exam GENERAL: Calm elderly woman. SKIN: Warm and dry. HEAD: Atraumatic. Normocephalic. NECK: Trachea midline. Airway widely patent. CARDIOVASCULAR: Regular rate and rhythm. No murmur appreciated. No JVD. RESPIRATORY: No accessory muscle use. Coarse breath sounds bilaterally. Good bilateral air movement. GASTROINTESTINAL: Abdomen soft, non-tender, nondistended. No guarding. MUSCULOSKELETAL: Pain with attempted range of motion of the left hip. Tender to palpation left hip. 2+ dorsalis pedis pulse bilaterally. externally rotated left foot.. NEUROLOGICAL: Awake and alert. No obvious cranial nerve deficits. Motor grossly within normal limits. Speech clear. Laboratory Laboratory Tests Test 07/26/17 20:10 07/27/17 05:30 White Blood Count 8.0 10.7 Red Blood Count 3.91 3.83 Hemoglobin 12.4 12.3 Hematocrit 36.5 36.3 Mean Corpuscular Volume 93.3 94.7 Mean Corpuscular Hemoglobin 31.8 32.1 Mean Corpuscular Hemoglobin Concent 34.0 33.9 Red Cell Distribution Width 13.7 13.5 Platelet Count 216 212 Mean Platelet Volume 8.4 8.6 Neutrophils (%) (Auto) 73.7 77.4 Lymphocytes (%) (Auto) 14.9 11.8 Monocytes (%) (Auto) 8.1 9.1 Eosinophils (%) (Auto) 2.7 1.1 Basophils (%) (Auto) 0.6 0.6 Neutrophils # (Auto) 5.9 8.3 Lymphocytes # (Auto) 1.2 1.3 Monocytes # (Auto) 0.7 1.0 Eosinophils # (Auto) 0.2 0.1 Basophils # (Auto) 0.1 0.1 CBC Comment DIFF FINAL DIFF FINAL Differential Comment Prothrombin Time 18.3 Prothromb Time International Ratio 1.6 Activated Partial Thromboplast Time 30.6 Blood Urea Nitrogen 16 14 Creatinine 0.96 0.70 Random Glucose 208 155 Calcium Level 8.7 8.7 Magnesium Level 2.0 Sodium Level 136 136 Potassium Level 3.9 3.9 Chloride Level 104 102 Carbon Dioxide Level 24.0 25.0 Anion Gap 8 9 Estimat Glomerular Filtration Rate 56 80 Result Diagram: 07/27/1730 07/27/1730 Assessment and Plan Assessment and Plan Assessment: 1. Acute fracture left hip (subcapital) 2. Permanent atrial fibrillation. 3. Permanent pacemaker VVI mode. 4. Interstitial Lung Disease. Plan: 1. Admit ISC. 2. Neuro checks. 3. Short acting anticoagulation, hold for surgery. 4. Maintenance iv fluid. 5. Lugo for pain control. 6. SCDs. 7. Pepcid. 8. Cardizem for immediate rate control. Overall impression: Unstable hemodynamics; requiring improved control prior to surgery. Jordan Guillermo MD Jul 27, 2017 16:26
[2017-07-27] MEDS ORDERED: MORPHINE SULFATE 4 MG/ML INJ IV PUSH PRN (16:30)
[2017-07-27] MEDS ORDERED: PHYTONADIONE INJ 1 MG/0.5 ML AMP SQ ONE (17:00)
[2017-07-27] MEDS: guaiFENesin E.R. 600 MG TAB PO SCH (20:13)
--- NOTE | 2017-07-27 20:24 | MH ---
cc: SHALININURY DATE OF ADMISSION 07/27/[address] Pruitt REASON FOR CONSULTATION Evaluate for pulmonary management. HISTORY OF PRESENT ILLNESS Ms. Vázquez is an 82-year-old white female known to me from the office. She has history of interstitial lung disease. She also has history of atrial fibrillation, bradyarrhythmia and pacemaker placement. The patient came to the hospital after a fall. She was trying to open a reclining chair and fell down and she sustained a left femoral fracture. The patient was also found to have atrial fibrillation with rapid ventricular rate and she was started on Cardizem drip which has been discontinued now. She did not lose any consciousness. Denies any chest pain. No shortness of breath. No fever or chills. No night sweats. PAST MEDICAL HISTORY Significant for history of interstitial lung disease, atrial defibrillation, pacemaker placement, anxiety disorder, history of TIA, history of tremors. MEDICATIONS She is currently takin. Metoprolol 25 milligrams twice a day. 2. Morphine for pain. 3. Atrovent nebulizer treatment. 4. Famotidine 20 milligrams a day. 5. Budesonide 0.5 milligrams nebulizer treatment q. 12 hours. ALLERGIES ALLERGIC TO SULFA, CORTISONE, SHELLFISH. SOCIAL HISTORY She has no history of smoking or alcohol use. FAMILY HISTORY Noncontributory. REVIEW OF SYSTEMS Normally she is up, around and active. Does not use any oxygen. She is on Coumadin. No seizure or epilepsy. PHYSICAL EXAMINATION GENERAL: Elderly female not in acute distress. VITAL SIGNS: Blood pressure 143/65, heart rate 80s, respiration 18, temperature 98. HEENT: Examination unremarkable NECK: Supple. JVP not raised. CHEST: Air entry equal bilaterally. She has inspiratory rales. CARDIOVASCULAR: S1-S2. ABDOMEN: Benign. EXTREMITIES: No edema. LABORATORY FINDINGS Her WBC count is 10.7, hemoglobin 12.3, hematocrit 36.3, MCV 94, platelet count 212, sodium 136, potassium 3.9, chloride 102, CO2 25, BUN 14, creatinine 0.70. IMAGING STUDIES Her chest x-ray shows stable interstitial prominence suggestive of fibrosis. Her CT scan of the hip shows left subcapital femoral neck fracture. IMPRESSION 1. Interstitial lung disease. 2. Left femoral neck supple subcapital fracture. 3. Atrial fibrillation with rapid ventricular rate which is controlled now. 4. Tremors. PLAN I discussed with the patient. She is on supplemental oxygen, heart rate is much better controlled. She has been planned for surgery. Stable from pulmonary standpoint for surgery. Continue aerosol treatment. Further treatment will depend on the course in the hospital. Thank you Dr. Pruitt for this consultation. MD NORM Richmond/GABRIELLE /7:53 PM /8:08 PM MTDThong
[2017-07-27] MEDS: METOPROLOL TARTRATE 25 MG TAB PO SCH (23:00)
[2017-07-28] VITALS (20 sets, daily range): BP systolic 128–152; BP diastolic 63–73; PULSE 85–107; RESP 17–25; TEMP 97.7–98.7; O2SAT 95–100
[2017-07-28] MEDS: DILTIAZEM INJ 125 MG in SODIUM CHLORIDE 0.9% INJ 100 ML IV PRN ×2 (00:36→19:32)
[2017-07-28] MEDS: FAMOTIDINE 20 MG/2 ML VIAL IV PUSH SCH ×2 (02:46→13:57)
[2017-07-28] MEDS: RESP: IPRATROPIUM 0.5 MG/2.5 ML NEB NEB SCH ×6 (03:30→23:30)
[2017-07-28 04:56] LABS: AUTOMATED NEUTROPHIL # 9.4 TH/MM3 (1.8-7.7); BASOPHIL # 0.1 TH/MM3 (0-0.2); BASOPHIL % 0.6 % (0.0-2.0); EOSINOPHIL % 0.4 % (0.0-4.0); HEMATOCRIT 37.9 % (35.0-46.0); HEMO FLAGS DIFF FINAL; LYMPHOCYTE # 0.9 TH/MM3 (1.0-4.8); MEAN CELL VOLUME 96.2 FL (80.0-100.0); MEAN CORPUSCULAR HEMOGLOBIN 30.8 PG (27.0-34.0); MEAN CORPUSCULAR HGB CONC 32.1 % (32.0-36.0); MONO % 10.8 % (0.0-8.0); NEUT % 80.2 % (16.0-70.0); PLATELET COUNT 211 TH/MM3 (150-450); RED BLOOD COUNT 3.94 MIL/MM3 (4.00-5.30); WHITE BLOOD COUNT 11.7 TH/MM3 (4.0-11.0)
[2017-07-28 04:58] LABS: INTERNATIONAL NORMALIZED RATIO 1.7 RATIO; PROTHROMBIN TIME - PATIENT 17.3 SEC (9.8-11.6)
[2017-07-28 05:12] LABS: BICARBONATE 25.5 MEQ/L (21.0-32.0); POTASSIUM 3.7 MEQ/L (3.5-5.1)
[2017-07-28] MEDS: DEXT 5%-NACL 0.45% 1000 ML INJ 1,000 ML IV SCH (06:07)
--- NOTE | 2017-07-28 07:09 | PD.ORT.PN ---
Subjective Subjective Remarks Complaints. Patient in ISC. PT/INR 1.7. Patient given 1 mg of vitamin K last night at 6 PM. Objective Vitals Vital Signs Date Time Temp Pulse Resp B/P (MAP) Pulse Ox O2 Delivery O2 Flow Rate FiO2 07/28/17 06:00 85 07/28/17 04:00 96 07/28/17 02:00 101 07/28/17 00:36 95 154/81 07/28/17 00:00 99 07/27/17 23:00 92 07/27/17 22:57 94 Nasal Cannula 2.00 07/27/17 22:00 89 07/27/17 20:00 83 07/27/17 19:00 93 Nasal Cannula 2.00 07/27/17 18:00 83 07/27/17 17:00 88 18 143/65 (91) 91 07/27/17 16:45 88 18 159/74 (102) 93 07/27/17 16:30 86 18 141/66 (91) 93 07/27/17 16:15 86 18 155/70 (98) 91 07/27/17 15:55 88 18 152/66 (94) 92 07/27/17 15:40 83 18 133/65 (87) 90 07/27/17 15:25 86 18 129/64 (85) 91 07/27/17 15:10 105 20 149/72 (97) 89 07/27/17 15:10 89 Nasal Cannula 4 07/27/17 15:10 105 07/27/17 15:00 116 18 157/71 (99) 92 07/27/17 14:30 126 18 149/73 (98) 92 07/27/17 14:19 122 149/79 07/27/17 14:10 126 07/27/17 14:05 99.4 115 18 152/73 (99) 92 07/27/17 14:05 07/27/17 14:02 Nasal Cannula 4 07/27/17 13:58 97 20 169/94 (119) 93 Nasal Cannula 4.00 07/27/17 10:19 97 19 172/79 (110) 95 6.00 I/O 07/27/17 07/27/17 07/27/17 07/28/17 07/28/17 07/28/17 07:00 15:00 23:00 07:00 15:00 23:00 Intake Total 84 ml 1100 ml Output Total 600 ml 1200 ml Balance -516 ml -100 ml Intake IV Total 84 ml 1100 ml Output Urine Total 600 ml 1200 ml Result Diagram: 07/28/17 0349 07/28/17 0349 Other Results Laboratory Tests Test 07/28/17 03:49 Prothromb Time International Ratio 1.7 RATIO Prothrombin Time 17.3 SEC (9.8-11.6) Objective Remarks Patient in bed comfortable. Assessment & Plan Assessment and Plan Left femoral neck fracture, subcapital, displaced. Atrial fibrillation with rapid response. Coumadin coagulopathy, INR 1.7 PLAN: Medical evaluation and treatment for underlying Coumadin coagulopathy. Will need more aggressive correction of coagulopathy. Discussion with anesthesia indicates that spinal anesthetic would be optimal for patient care at the time of surgery. Surgical treatment anticipated for later today by Dr. Rivas Medical treatment for elevated heart rate. Surgery: Left hip bipolar replacement arthroplasty. Consent: There are risks with surgery including infection bleeding loss of motion continued pain and need for further surgery dislocation failure of components failure bone. Leg length discrepancies are a possibility. Neurologic or vascular injury is possible. Efrain Garcia MD Jul 28, 2017 07:09
[2017-07-28] MEDS: RESP: BUDESONIDE 0.5 MG/2 ML NEB NEB SCH ×2 (07:52→20:18)
[2017-07-28] MEDS: SODIUM CHLORIDE 0.9% FLUSH 10 ML FLUSH IV FLUSH SCH (09:00)
[2017-07-28] MEDS: guaiFENesin E.R. 600 MG TAB PO SCH ×2 (09:04→20:30)
[2017-07-28] MEDS: METOPROLOL TARTRATE 25 MG TAB PO SCH ×2 (09:04→20:30)
--- NOTE | 2017-07-28 10:09 | HHI.CCPN ---
Subjective Remarks/Hospital Course 82 y/o woman fell while tangled with a folding chair. No syncope. She sustained a left subcapital hip fracture seen best on hip CT scan. Plan repair of hip fracture delayed due to unstable cardiac rhythm, rapid ventricular rate. Started on cardizem gtt infusion in PACU, will be transported to [facility]. She has permanent a-fib and takes propranolol and coumadin. INR subtherapeutic on arrival. 07/28: Rate control excellent, on lopressor, tapering cardizem. INR 1.7 - will transfuse 2 units FFP now and recheck, consider adding two FFP for OR. Objective Vital Signs Date Time Temp Pulse Resp B/P (MAP) Pulse Ox O2 Delivery O2 Flow Rate FiO2 07/28/17 08:00 94 07/28/17 08:00 97.7 18 132/63 (86) 100 07/28/17 07:52 Nasal Cannula 3.00 07/27/17 10:19 50 Intake and Output 07/28/17 07/28/17 07/29/17 08:00 16:00 00:00 Intake Total 1100 ml Output Total 1200 ml Balance -100 ml Result Diagram: 07/28/17 0349 07/28/17 0349 Objective Remarks GENERAL: Calm elderly woman. SKIN: Warm and dry. HEAD: Atraumatic. Normocephalic. NECK: Trachea midline. Airway widely patent. CARDIOVASCULAR: Irreg Irreg. Rate 91. No murmur appreciated. No JVD. RESPIRATORY: No accessory muscle use. Coarse breath sounds bilaterally. Good bilateral air movement. GASTROINTESTINAL: Abdomen soft, non-tender, nondistended. No guarding. MUSCULOSKELETAL: Pain with attempted range of motion of the left hip. Tender to palpation left hip. 2+ dorsalis pedis pulse bilaterally. externally rotated left foot.. NEUROLOGICAL: Awake and alert. No obvious cranial nerve deficits. Motor grossly within normal limits. Speech clear. A/P Assessment and Plan Assessment: 1. Acute fracture left hip (subcapital) 2. Permanent atrial fibrillation. 3. Permanent pacemaker VVI mode. 4. Interstitial Lung Disease. 5. Coagulopathy. Warfarin. Plan: 1. FFP 2 units now, recheck INR before OR. 2. Neuro checks. 3. Short acting anticoagulation, hold for surgery. 4. Maintenance iv fluid. 5. Lugo for pain control. 6. SCDs. 7. Pepcid. 8. Taper off Cardizem for immediate rate control. 9. Prepare two units FFP for OR. Overall impression: Stable hemodynamics, improved heart rate control. Ready for OR today. Jordan Guillermo MD Jul 28, 2017 10:09
[2017-07-28] MEDS ORDERED: POTASSIUM CHLOR 20 MEQ PREMIX 100 ML IV ONE (10:15)
[2017-07-28] MEDS: MORPHINE SULFATE 2 MG/ML INJ IV PRN ×3 (11:59→20:41)
[2017-07-28] MEDS ORDERED: FUROSEMIDE 20 MG/2 ML VIAL IV PUSH ONE (12:00)
[2017-07-28 16:04] LABS: INTERNATIONAL NORMALIZED RATIO 1.3 RATIO; PROTHROMBIN TIME - PATIENT 13.6 SEC (9.8-11.6)
[2017-07-28] MEDS ORDERED: METOPROLOL TARTRATE 25 MG TAB PO ONE (17:00)
--- NOTE | 2017-07-28 18:38 | HHI.PR ---
Subjective Remarks 82 YOWF with ILD, Fall Left femur fracture pain better On NC No fever Objective Vital Signs Vital Signs Date Time Temp Pulse Resp B/P (MAP) Pulse Ox O2 Delivery O2 Flow Rate FiO2 07/28/17 16:00 98.4 107 25 143/65 (91) 99 07/28/17 16:00 107 07/28/17 15:00 94 07/28/17 14:00 96 07/28/17 13:51 98.4 100 17 128/64 98 07/28/17 12:59 98.3 91 17 138/73 100 07/28/17 12:00 89 07/28/17 12:00 98.4 89 22 133/65 (87) 95 07/28/17 11:22 99 Nasal Cannula 2.00 07/28/17 10:00 96 07/28/17 08:00 94 07/28/17 08:00 97.7 94 18 132/63 (86) 100 07/28/17 07:52 96 Nasal Cannula 3.00 07/28/17 07:00 94 07/28/17 07:00 100 Nasal Cannula 3.00 07/28/17 06:00 85 07/28/17 04:00 96 07/28/17 02:00 101 07/28/17 00:36 95 154/81 07/28/17 00:00 99 07/27/17 23:00 92 07/27/17 22:57 94 Nasal Cannula 2.00 07/27/17 22:00 89 07/27/17 20:00 83 07/27/17 19:00 93 Nasal Cannula 2.00 I/O 07/27/17 07/27/17 07/27/17 07/28/17 07/28/17 07/28/17 07:00 15:00 23:00 07:00 15:00 23:00 Intake Total 84 ml 1100 ml 200 ml 892 ml Output Total 600 ml 1200 ml Balance -516 ml -100 ml 200 ml 892 ml Intake IV Total 84 ml 1100 ml 100 ml FFP 692 ml Blood Product IV Normal Saline Flush 100 ml 200 ml Output Urine Total 600 ml 1200 ml Result Diagram: 07/28/17 0349 07/28/17348 Objective Remarks GENERAL: Elderly female, mild sob SKIN: Warm and dry. HEAD: Normocephalic. EYES: No scleral icterus. No injection or drainage. NECK: Supple, trachea midline. No JVD or lymphadenopathy. CARDIOVASCULAR: Regular rate and rhythm without murmurs, gallops, or rubs. RESPIRATORY: Breath sounds equal bilaterally. No accessory muscle use. GASTROINTESTINAL: Abdomen soft, non-tender, nondistended. MUSCULOSKELETAL: No cyanosis, or edema. BACK: Nontender without obvious deformity. No CVA tenderness. A/P Assessment and Plan Interstitial lung disease Left Subcapital femur fracture AF Tremers PLAN: Aerosol nebs Supplement 02 pain controll Laron Skinner MD Jul 28, 2017 18:38
[2017-07-29] VITALS (20 sets, daily range): BP systolic 121–149; BP diastolic 60–80; PULSE 68–118; RESP 14–22; TEMP 97–98.8; O2SAT 93–100
[2017-07-29] MEDS: RESP: IPRATROPIUM 0.5 MG/2.5 ML NEB NEB SCH ×5 (03:03→20:21)
[2017-07-29] MEDS: DILTIAZEM INJ 125 MG in SODIUM CHLORIDE 0.9% INJ 100 ML IV PRN (04:24)
[2017-07-29] MEDS: FAMOTIDINE 20 MG/2 ML VIAL IV PUSH SCH ×2 (04:25→12:40)
[2017-07-29 05:00] LABS: AUTOMATED NEUTROPHIL # 8.6 TH/MM3 (1.8-7.7); BASOPHIL # 0.1 TH/MM3 (0-0.2); BASOPHIL % 0.5 % (0.0-2.0); EOSINOPHIL # 0.1 TH/MM3 (0-0.4); EOSINOPHIL % 0.8 % (0.0-4.0); HEMATOCRIT 32.6 % (35.0-46.0); HEMO FLAGS DIFF FINAL; LYMPH % 8.3 % (9.0-44.0); LYMPHOCYTE # 0.9 TH/MM3 (1.0-4.8); MEAN CELL VOLUME 94.1 FL (80.0-100.0); MEAN CORPUSCULAR HEMOGLOBIN 31.6 PG (27.0-34.0); MEAN CORPUSCULAR HGB CONC 33.6 % (32.0-36.0); MONO % 11.8 % (0.0-8.0); NEUT % 78.6 % (16.0-70.0); PLATELET COUNT 174 TH/MM3 (150-450); RED BLOOD COUNT 3.46 MIL/MM3 (4.00-5.30)
[2017-07-29 05:24] LABS: BICARBONATE 28.3 MEQ/L (21.0-32.0); POTASSIUM 3.7 MEQ/L (3.5-5.1)
[2017-07-29] MEDS: DEXT 5%-NACL 0.45% 1000 ML INJ 1,000 ML IV SCH (06:29)
[2017-07-29] MEDS: MORPHINE SULFATE 2 MG/ML INJ IV PRN (07:36)
[2017-07-29] MEDS: METOPROLOL TARTRATE 25 MG TAB PO SCH ×4 (07:36→22:21)
[2017-07-29] MEDS: RESP: BUDESONIDE 0.5 MG/2 ML NEB NEB SCH ×2 (07:53→20:22)
[2017-07-29] MEDS ORDERED: ACETAMINOPHEN 1000 MG/100 ML 100 ML IV ONE (08:08)
[2017-07-29] MEDS ORDERED: GENTAMICIN SULFATE 80 MG/2 ML VIAL ONE (08:16)
[2017-07-29] MEDS ORDERED: SODIUM CHLOR 0.9% 1000 ML INJ 1,000 ML IV SCH (08:37)
[2017-07-29] MEDS ORDERED: HYDR-3288 PO (08:41)
[2017-07-29] MEDS ORDERED: TRANEXAMIC ACID INJ 1,000 MG/10 ML AMP ONE (08:43)
[2017-07-29] MEDS ORDERED: ONDANSETRON HCL 4 MG/2 ML VIAL IVP PRN (08:45)
[2017-07-29] MEDS ORDERED: diphenhydrAMINE HCL 50 MG/ML VIAL IV PUSH PRN (08:45)
[2017-07-29] MEDS ORDERED: BISACODYL 10 MG SUPP RECTAL PRN (08:45)
[2017-07-29] MEDS ORDERED: ACETAMINOPHEN/HYDROcodone 325 MG/7.5 MG TAB PO PRN (08:45)
[2017-07-29] MEDS ORDERED: ZOLPIDEM TARTRATE 5 MG TAB PO PRN (08:45)
[2017-07-29] MEDS ORDERED: Post-op Orders (for Pharmacy) MISC XX ONE (08:45)
[2017-07-29] MEDS ORDERED: MORPHINE SULFATE 4 MG/ML INJ IV PUSH PRN (08:45)
[2017-07-29] MEDS ORDERED: VANCOMYCIN HCL 1000 MG VIAL ONE (08:57)
[2017-07-29] MEDS: SODIUM CHLORIDE 0.9% FLUSH 10 ML FLUSH IV FLUSH SCH ×2 (09:00→20:36)
[2017-07-29] MEDS: guaiFENesin E.R. 600 MG TAB PO SCH ×2 (09:00→20:36)
[2017-07-29] MEDS ORDERED: *RESP: ALBUTEROL 2.5 MG/3 ML NEB (PRN) PERIprocedural Use ONLY NEB ONE (11:01)
[2017-07-29] MEDS ORDERED: DO NOT ADM ANY ANTICOAGULANT DRUGS PRN (11:45)
[2017-07-29] MEDS ORDERED: TRANEXAMIC ACID IV SCH (12:00)
[2017-07-29] MEDS ORDERED: SODIUM CHLORIDE 0.9% IV SCH (12:00)
--- NOTE | 2017-07-29 12:16 | HHI.CCPN ---
Subjective Remarks/Hospital Course 82 y/o woman fell while tangled with a folding chair. No syncope. She sustained a left subcapital hip fracture seen best on hip CT scan. Plan repair of hip fracture delayed due to unstable cardiac rhythm, rapid ventricular rate. Started on cardizem gtt infusion in PACU, will be transported to [facility]. She has permanent a-fib and takes propranolol and coumadin. INR subtherapeutic on arrival. 07/28: Rate control excellent, on lopressor, tapering cardizem. INR 1.7 - will transfuse 2 units FFP now and recheck, consider adding two FFP for OR. 07/29: back from OR. back on cardizem drip, but now rate controlled again. BNP slightly elevated this AM. ROS negative. pain controlled. Objective Vital Signs Date Time Temp Pulse Resp B/P (MAP) Pulse Ox O2 Delivery O2 Flow Rate FiO2 07/29/17 11:30 97.9 78 16 131/59 (83) 96 Nasal Cannula 4 Aerosol Mask 07/27/17 10:19 50 Intake and Output 07/29/17 07/29/17 07/30/17 08:00 16:00 00:00 Intake Total 1125 ml 1500 ml Output Total 750 ml 300 ml Balance 375 ml 1200 ml Result Diagram: 07/29/1744107/29/17441 Objective Remarks GENERAL: Calm elderly woman. SKIN: Warm and dry. HEAD: Atraumatic. Normocephalic. NECK: Trachea midline. Airway widely patent. CARDIOVASCULAR: Irreg Irreg. Rate 80s. No murmur appreciated. No JVD. RESPIRATORY: No accessory muscle use. Good bilateral air movement. GASTROINTESTINAL: Abdomen soft, non-tender, nondistended. No guarding. MUSCULOSKELETAL: 2+ dorsalis pedis pulse bilaterally. NEUROLOGICAL: Awake and alert. No obvious cranial nerve deficits. Motor grossly within normal limits. Speech clear. A/P Assessment and Plan Assessment: 1. Acute fracture left hip (subcapital) 2. Permanent atrial fibrillation. 3. Permanent pacemaker VVI mode. 4. Interstitial Lung Disease. 5. Coagulopathy. Warfarin. Plan: 1. increase metoprolol to 25 mg po q6h. 2. d/c cardizem drip 3. d/c mivf: grossly euvolemic with slightly elevated BNP, can go without mivf safely. 4. continue to hold anticoag. 5. SCDs. 6. Pepcid. Overall impression: Stable hemodynamics, improved heart rate control. s/p OR today. could go to floor if rate controlled. Tao Shields MD Jul 29, 2017 12:16
--- NOTE | 2017-07-29 14:18 | RADRPT ---
EXAM DATE/TIME: 07/29/2017 13:20 [place] COMPARISON: HIP LEFT (AP&LAT 2/3VWS) W AP PELVIS, July 26, 2017, 21:15. INDICATIONS : Post operative images for hip replacement. MEDICAL HISTORY : None. SURGICAL HISTORY : None. ENCOUNTER: Initial ACUITY: 1 day PAIN SCORE: Non-responsive. LOCATION: Left hip. FINDINGS: Interval left hip arthroplasty. The arthroplasty components are in anatomic alignment. No new bony fr actures. Post surgical soft tissue features. CONCLUSION: 1. Status post left hip arthroplasty in anatomic alignment without new acute fracture. Matthew Mckinley MD on July 29, 2017 at 14:14 Board Certified Radiologist. This report was verified electronically.
[2017-07-29] MEDS: ceFAZolin 2 GM PREMIX 50 ML IV SCH ×2 (14:42→20:36)
--- NOTE | 2017-07-29 15:21 | MP ---
cc: BEATRICE SHETH DATE OF SURGERY 07/29/17 PREOPERATIVE DIAGNOSIS Left femoral neck fracture. POSTOPERATIVE DIAGNOSES Left femoral neck fracture. PROCEDURE Left bipolar hemiarthroplasty. SURGEON Dr. Beatrice Sheth. GENERAL SCRAP WORKER Chaka Arroyo PA-C. ANESTHESIA General. ESTIMATED BLOOD LOSS 200 cc. COMPLICATIONS None. IMPLANTS USED DePuy Corail size 13 Press-Fit high offset femoral stem, size 49 cup, 28 head, +5 neck. JUSTIFICATION This patient is an 82-year-old female who fell sustaining left displaced femoral neck fracture. She was taken to [facility] Emergency Room. X-rays confirmed the above-named findings. Orthopedic surgery consulted. The patient was on Coumadin preoperatively and needed to have her anticoagulation reversed. She also has a history of atrial fibrillation and has had intermittent rapid ventricular rates which has required medical treatment and a Cardizem drip. Once the patient's rate has been controlled and she has been medically cleared she was counseled to the risks, benefits, alternatives to a bipolar hemiarthroplasty replacement. She did wish to proceed with surgery. PROCEDURE IN DETAIL A written consent was obtained. The patient was identified by name, taken to the operating room, placed supine on the operating room table. General anesthesia was administered as well as 2 grams of IV Ancef and 1 gram of IV vancomycin. The patient carefully turned to a right lateral decubitus position. A lateral arm roll was placed. All bony prominences and pressure points are well padded. The left hip and left lower extremity prepped and draped using isopropyl alcohol, Hibiclens solution and Chloraprep solution. After a time-out was performed a longitudinal incision was made over the posterolateral aspect of the left hip. The fascial layer was incised, piriformis capsule was incised and tagged with #2 FiberWire suture. The fractured femoral head and neck component was removed. An oscillating saw was used to form a new femoral neck cut. A box cutting osteotome was used to gain entrance into the intramedullary canal of the femur, this was followed by canal finder and lateralizing reamer. Sequential broaching up to size 13 followed by calcar planer. Trial head and neck combinations evaluated and final components implanted with the current components. Leg achieved full extension and external rotation without evidence of anterior instability or impingement. The hip could be flexed 90 degrees and internally rotated approximately 70 degrees before evidence of posterior instability. Soft tissue tension felt appropriate and leg lengths felt relatively symmetric. The surgical wounds were thoroughly irrigated with sterile saline pulse lavage antibiotic impregnated solution. The piriformis capsule was primarily repaired with #2 FiberWire suture. Fascia layer closed with #1 Vicryl suture. The subcutaneous layer with 2-0 Vicryl suture. Skin was closed with Dermabond. Sterile dressing applied. The patient tolerated the procedure well. No intraoperative complications noted. Chaka Arroyo, physician desk assistant-certified, was present during the entire procedure to include patient positioning and the procedure itself. The medical necessity of a physician desk assistant was indicated in this case due to the complexity of the procedure. He assisted with manipulation of leg, muscle retraction, muscle, tendon, bone, neurovascular structures. He assisted in preparation of bone and also implantation of the prosthetic replacement. Beatrice Sheth MD JWM/GABRIELLE /10:09 AM /2:55 PM
--- NOTE | 2017-07-29 15:36 | HHI.PR ---
Subjective Remarks alert no SOB at rest on O2 Objective Vital Signs Date Time Temp Pulse Resp B/P (MAP) Pulse Ox O2 Delivery O2 Flow Rate FiO2 07/29/17 14:00 68 07/29/17 12:00 97.3 74 14 121/60 (80) 95 07/29/17 12:00 71 07/29/17 11:30 97.9 78 16 131/59 (83) 96 Nasal Cannula 4 Aerosol Mask 07/29/17 11:15 78 15 136/62 (86) 96 Nasal Cannula 4 Aerosol Mask 07/29/17 11:00 76 16 118/56 (76) 94 Nasal Cannula 4 Aerosol Mask 07/29/17 10:45 75 14 125/60 (81) 94 Nasal Cannula 4 07/29/17 10:43 97.7 82 10 142/65 (90) 95 Nasal Cannula 4 07/29/17 08:00 97.9 96 18 124/60 (81) 100 07/29/17 08:00 90 07/29/17 07:52 93 Nasal Cannula 2.00 07/29/17 07:00 101 07/29/17 07:00 99 Nasal Cannula 3.00 07/29/17 06:00 85 07/29/17 05:00 88 07/29/17 04:24 93 120/57 07/29/17 04:00 98.1 96 22 142/65 (90) 98 07/29/17 04:00 89 07/29/17 04:00 103 07/29/17 03:00 103 07/29/17 02:00 96 07/29/17 02:00 94 07/29/17 01:00 96 07/29/17 00:00 97.9 86 21 140/80 (100) 94 07/29/17 00:00 86 07/29/17 00:00 82 07/28/17 23:00 86 07/28/17 22:00 97 07/28/17 20:19 96 Nasal Cannula 2.00 07/28/17 20:00 98.7 104 21 152/71 (98) 99 07/28/17 20:00 100 Nasal Cannula 3.00 07/28/17 20:00 104 07/28/17 19:40 98.7 105 20 153/69 (97) 96 07/28/17 19:32 118 153/69 07/28/17 18:55 98.7 117 20 124/75 (91) 96 07/28/17 18:00 102 07/28/17 16:00 98.4 107 25 143/65 (91) 99 07/28/17 16:00 107 I/O 07/28/17 07/28/17 07/28/17 07/29/17 07/29/17 07/29/17 07:00 15:00 23:00 07:00 15:00 23:00 Intake Total 1100 ml 200 ml 892 ml 1125 ml 1607.62 ml Output Total 1200 ml 1800 ml 750 ml 300 ml Balance -100 ml 200 ml -908 ml 375 ml 1307.62 ml Intake IV Total 1100 ml 100 ml 1125 ml 107.62 ml FFP 692 ml Blood Product IV Normal Saline Flush 100 ml 200 ml Other 1500 ml Output Urine Total 1200 ml 1800 ml 750 ml Estimated Blood Loss 200 ml Other 100 ml Result Diagram: 07/29/1744107/29/17441 Objective Remarks GENERAL: SKIN: Warm and dry. HEAD: Atraumatic. Normocephalic. EYES: Pupils equal and round. No scleral icterus. No injection or drainage. ENT: No nasal bleeding or discharge. Mucous membranes pink and moist. NECK: Trachea midline. No JVD. CARDIOVASCULAR: Regular rate and rhythm. RESPIRATORY: No accessory muscle use. Clear to auscultation. Breath sounds equal bilaterally. GASTROINTESTINAL: Abdomen soft, non-tender, nondistended. Hepatic and splenic margins not palpable. MUSCULOSKELETAL: Extremities without clubbing, cyanosis, or edema. No obvious deformities. NEUROLOGICAL: Awake and alert. No obvious cranial nerve deficits. Motor grossly within normal limits. Five out of 5 muscle strength in the arms and legs. Normal speech. PSYCHIATRIC: Appropriate mood and affect; insight and judgment normal. Assessment and Plan Assessment and Plan RESPIRATORY FAIURE PULM FIBROSIS HIP fx PLAN O2 NEEDED PULM TOILET INCREASE ACTIVITY Mary Hernandez MD Jul 29, 2017 15:36
[2017-07-29] MEDS: MORPHINE SULFATE 4 MG/ML INJ IV PRN (17:15)
[2017-07-29] MEDS: ACETAMINOPHEN/HYDROcodone 325 MG/7.5 MG TAB PO PRN (22:21)
[2017-07-29] MEDS: ENOXAPARIN SODIUM 30 MG/0.3 ML SYRINGE SQ SCH (22:22)
[2017-07-30] VITALS (15 sets, daily range): BP systolic 120–138; BP diastolic 60–82; PULSE 98–130; RESP 18–25; TEMP 96.4–101.4; O2SAT 92–98
[2017-07-30] MEDS: RESP: IPRATROPIUM 0.5 MG/2.5 ML NEB NEB SCH ×6 (00:17→23:40)
[2017-07-30] MEDS: ceFAZolin 2 GM PREMIX 50 ML IV SCH (01:08)
[2017-07-30] MEDS: FAMOTIDINE 20 MG/2 ML VIAL IV PUSH SCH ×2 (01:08→15:39)
[2017-07-30] MEDS ORDERED: METOPROLOL TARTRATE 5 MG/5 ML VIAL IV PUSH PRN (03:00)
--- NOTE | 2017-07-30 03:09 | HHI.CCPN ---
Subjective Remarks/Hospital Course 82 y/o woman fell while tangled with a folding chair. No syncope. She sustained a left subcapital hip fracture seen best on hip CT scan. Plan repair of hip fracture delayed due to unstable cardiac rhythm, rapid ventricular rate. Started on cardizem gtt infusion in PACU, will be transported to [facility]. She has permanent a-fib and takes propranolol and coumadin. INR subtherapeutic on arrival. 07/28: Rate control excellent, on lopressor, tapering cardizem. INR 1.7 - will transfuse 2 units FFP now and recheck, consider adding two FFP for OR. 07/29: back from OR. back on cardizem drip, but now rate controlled again. BNP slightly elevated this AM. ROS negative. pain controlled. 07/30: Rate control improved. Breathing comfortably. Add diuretic daily. Objective Vital Signs Date Time Temp Pulse Resp B/P (MAP) Pulse Ox O2 Delivery O2 Flow Rate FiO2 07/30/17 00:00 106 07/30/17 00:00 99.3 20 136/60 (85) 92 07/29/17 20:22 Nasal Cannula 3.00 07/27/17 10:19 50 Result Diagram: 07/29/1744107/29/17441 Objective Remarks GENERAL: Calm elderly woman. SKIN: Warm and dry. HEAD: Atraumatic. Normocephalic. NECK: Trachea midline. Airway widely patent. CARDIOVASCULAR: Irreg Irreg. Rate 90 - 130s. No murmur appreciated. No JVD. RESPIRATORY: No accessory muscle use. Good bilateral air movement. Clear. GASTROINTESTINAL: Abdomen soft, non-tender, nondistended. No guarding. MUSCULOSKELETAL: 2+ dorsalis pedis pulse bilaterally. Well perfused. NEUROLOGICAL: Awake and alert. No obvious cranial nerve deficits. Motor grossly within normal limits. Speech clear. A/P Assessment and Plan Assessment: 1. Acute fracture left hip (subcapital) 2. Permanent atrial fibrillation. 3. Permanent pacemaker VVI mode. 4. Interstitial Lung Disease. 5. Coagulopathy. Warfarin. Plan: 1. increase metoprolol to 25 mg po q6h. 2. d/c cardizem drip 3. d/c mivf: grossly euvolemic with slightly elevated BNP, can go without mivf safely. 4. continue to hold anticoag. 5. SCDs. 6. Pepcid. 7. Lasix 20 iv now, start 20 po daily. Overall impression: Stable hemodynamics, improved heart rate control. s/p OR . To floor today. Jordan Guillermo MD Jul 30, 2017 03:09
[2017-07-30] MEDS ORDERED: FUROSEMIDE 20 MG/2 ML VIAL IV PUSH ONE (03:15)
[2017-07-30] MEDS: MORPHINE SULFATE 4 MG/ML INJ IV PRN (04:02)
[2017-07-30] MEDS: METOPROLOL TARTRATE 25 MG TAB PO SCH ×3 (04:02→17:29)
[2017-07-30 06:32] LABS: HEMATOCRIT 29.6 % (35.0-46.0); MEAN CELL VOLUME 93.2 FL (80.0-100.0); MEAN CORPUSCULAR HEMOGLOBIN 31.5 PG (27.0-34.0); MEAN CORPUSCULAR HGB CONC 33.9 % (32.0-36.0); PLATELET COUNT 201 TH/MM3 (150-450); RED BLOOD COUNT 3.18 MIL/MM3 (4.00-5.30); RED CELL DISTRIBUTION WIDTH 13.4 % (11.6-17.2); REVIEW FLAG FINAL; WHITE BLOOD COUNT 12.2 TH/MM3 (4.0-11.0)
[2017-07-30 06:54] LABS: INTERNATIONAL NORMALIZED RATIO 1.2 RATIO; PROTHROMBIN TIME - PATIENT 12.5 SEC (9.8-11.6)
[2017-07-30] MEDS: RESP: BUDESONIDE 0.5 MG/2 ML NEB NEB SCH ×2 (08:14→19:57)
[2017-07-30] MEDS: guaiFENesin E.R. 600 MG TAB PO SCH ×3 (08:47→20:40)
[2017-07-30] MEDS: FUROSEMIDE 20 MG TAB PO SCH ×2 (08:48→09:00)
[2017-07-30] MEDS: ACETAMINOPHEN/HYDROcodone 325 MG/7.5 MG TAB PO PRN ×2 (08:49→22:09)
[2017-07-30] MEDS: SODIUM CHLORIDE 0.9% FLUSH 10 ML FLUSH IV FLUSH SCH ×2 (08:49→20:40)
--- NOTE | 2017-07-30 11:53 | PD.ORT.PN ---
Subjective Post Op Day #: 1 Subjective Remarks L hip pain controlled. Objective Vitals Vital Signs Date Time Temp Pulse Resp B/P (MAP) Pulse Ox O2 Delivery O2 Flow Rate FiO2 07/30/17 10:00 99 07/30/17 08:16 98 Nasal Cannula 3.00 07/30/17 08:00 101.4 105 20 129/64 (85) 97 07/30/17 08:00 105 07/30/17 07:00 118 07/30/17 07:00 97 Nasal Cannula 3.00 07/30/17 06:00 110 07/30/17 04:00 98.9 118 25 135/82 (99) 95 07/30/17 04:00 118 07/30/17 02:00 106 07/30/17 00:00 106 07/30/17 00:00 99.3 106 20 136/60 (85) 92 07/29/17 23:00 118 07/29/17 22:00 90 07/29/17 20:22 98 Nasal Cannula 3.00 07/29/17 20:00 98.8 90 21 149/65 (93) 97 07/29/17 20:00 90 07/29/17 19:00 96 Nasal Cannula 3.00 07/29/17 18:00 87 07/29/17 18:00 87 07/29/17 17:00 87 07/29/17 16:00 77 07/29/17 16:00 97.0 77 16 125/61 (82) 98 07/29/17 16:00 77 07/29/17 15:00 79 07/29/17 14:00 68 07/29/17 12:00 97.3 74 14 121/60 (80) 95 07/29/17 12:00 71 I/O 07/29/17 07/29/17 07/29/17 07/30/17 07/30/17 07/30/17 07:00 15:00 23:00 07:00 15:00 23:00 Intake Total 1125 ml 1607.62 ml 488 ml 260 ml Output Total 750 ml 300 ml 350 ml 800 ml Balance 375 ml 1307.62 ml 138 ml -540 ml Intake Oral 30 ml 60 ml IV Total 1125 ml 107.62 ml 458 ml 200 ml Other 1500 ml Output Urine Total 750 ml 350 ml 800 ml Estimated Blood Loss 200 ml Other 100 ml # Bowel Movements 0 0 Result Diagram: 07/30/17 0617 07/29/17 0442 Other Results Laboratory Tests Test 07/30/17 06:17 Prothromb Time International Ratio 1.2 RATIO Prothrombin Time 12.5 SEC (9.8-11.6) Objective Remarks in bed, nad dressing c/d/i neg homans nvi Assessment & Plan Ortho Post Op Day #: 1 Problem List: Assessment and Plan Left femoral neck fracture, subcapital, displaced. Atrial fibrillation with rapid response. s/p L Bipolar Hemiarthroplasty POD#1 wbat - posterior hip precautions ok to maintain dressing unless saturated lovenox or may resume coumadin d/c planning f/up ortho dr. lima 2 weeks Rashawn Arroyo Jul 30, 2017 11:53
--- NOTE | 2017-07-30 14:00 | HHI.PR ---
Subjective Remarks alert no SOB at rest on O2 Objective Vital Signs Date Time Temp Pulse Resp B/P (MAP) Pulse Ox O2 Delivery O2 Flow Rate FiO2 07/30/17 12:29 100.4 98 19 120/66 (84) 98 07/30/17 12:00 98 07/30/17 10:00 99 07/30/17 08:16 98 Nasal Cannula 3.00 07/30/17 08:00 101.4 105 20 129/64 (85) 97 07/30/17 08:00 105 07/30/17 07:00 118 07/30/17 07:00 97 Nasal Cannula 3.00 07/30/17 06:00 110 07/30/17 04:00 98.9 118 25 135/82 (99) 95 07/30/17 04:00 118 07/30/17 02:00 106 07/30/17 00:00 106 07/30/17 00:00 99.3 106 20 136/60 (85) 92 07/29/17 23:00 118 07/29/17 22:00 90 07/29/17 20:22 98 Nasal Cannula 3.00 07/29/17 20:00 98.8 90 21 149/65 (93) 97 07/29/17 20:00 90 07/29/17 19:00 96 Nasal Cannula 3.00 07/29/17 18:00 87 07/29/17 18:00 87 07/29/17 17:00 87 07/29/17 16:00 77 07/29/17 16:00 97.0 77 16 125/61 (82) 98 07/29/17 16:00 77 07/29/17 15:00 79 07/29/17 14:00 68 I/O 07/29/17 07/29/17 07/29/17 07/30/17 07/30/17 07/30/17 07:00 15:00 23:00 07:00 15:00 23:00 Intake Total 1125 ml 1607.62 ml 488 ml 260 ml Output Total 750 ml 300 ml 350 ml 800 ml Balance 375 ml 1307.62 ml 138 ml -540 ml Intake Oral 30 ml 60 ml IV Total 1125 ml 107.62 ml 458 ml 200 ml Other 1500 ml Output Urine Total 750 ml 350 ml 800 ml Estimated Blood Loss 200 ml Other 100 ml # Bowel Movements 0 0 Result Diagram: 07/30/17 0617 07/29/17 0442 Objective Remarks GENERAL: SKIN: Warm and dry. HEAD: Atraumatic. Normocephalic. EYES: Pupils equal and round. No scleral icterus. No injection or drainage. ENT: No nasal bleeding or discharge. Mucous membranes pink and moist. NECK: Trachea midline. No JVD. CARDIOVASCULAR: Regular rate and rhythm. RESPIRATORY: No accessory muscle use. Clear to auscultation. Breath sounds equal bilaterally. GASTROINTESTINAL: Abdomen soft, non-tender, nondistended. Hepatic and splenic margins not palpable. MUSCULOSKELETAL: Extremities without clubbing, cyanosis, or edema. No obvious deformities. NEUROLOGICAL: Awake and alert. No obvious cranial nerve deficits. Motor grossly within normal limits. Five out of 5 muscle strength in the arms and legs. Normal speech. PSYCHIATRIC: Appropriate mood and affect; insight and judgment normal. Assessment and Plan Assessment and Plan RESPIRATORY FAIURE PULM FIBROSIS HIP fx PLAN O2 NEEDED PULM TOILET INCREASE ACTIVITY Mary Hernandez MD Jul 30, 2017 14:00
[2017-07-30 17:00] LABS: BICARBONATE 28.5 MEQ/L (21.0-32.0); POTASSIUM 3.7 MEQ/L (3.5-5.1)
--- NOTE | 2017-07-30 20:34 | PD.CARD.PN ---
Subjective Subjective Remarks no cv complaints back in afib with RVR this evening Objective Medications Current Medications Medications (Trade) Dose Ordered Sig/Deisy Route Start Time Stop Time Status Last Admin (NS Flush) 2 ml UNSCH PRN IV FLUSH 07/27/17 01:15 (NS Flush) 2 ml BID IV FLUSH 07/27/17 09:00 07/30/17 08:49 (Narcan Inj) 0.4 mg UNSCH PRN IV PUSH 07/27/17 01:15 (Atrovent Neb) 0.5 mg Q4HR NEB NEB 07/27/17 16:00 07/30/17 19:57 (Pulmicort Respule Neb) 0.5 mg Q12HR NEB NEB 07/27/17 13:30 07/30/17 19:57 (Mucinex Er) 600 mg BID PO 07/27/17 13:30 07/29/17 20:36 (Pepcid Inj) 20 mg Q12H IV PUSH 07/27/17 14:00 07/30/17 15:39 (Lovenox Inj) 30 mg Q24H SQ 07/29/17 23:00 07/29/17 22:22 (Morphine Inj) 3 mg Q3H PRN IV PUSH 07/29/17 08:45 ([place] 7.5-325 Mg) 1 tab Q4H PRN PO 07/29/17 08:45 ([place] 7.5-325 Mg) 2 tab Q4H PRN PO 07/29/17 08:45 07/29/17 22:21 (Theragran M Tab) 1 tab BID PO 07/30/17 21:00 09/28/17 20:59 (Zofran Inj) 4 mg Q6H PRN IVP 07/29/17 08:45 (Colace) 100 mg BID PO 07/30/17 21:00 (Dulcolax Supp) 10 mg DAILY PRN RECTAL 07/29/17 08:45 (Benadryl Inj) 25 mg Q6H PRN IV PUSH 07/29/17 08:45 (Morphine Inj) 2 mg Q3H PRN IV 07/29/17 09:15 07/30/17 04:02 (Lasix) 20 mg DAILY PO 07/30/17 09:00 (Lopressor) 50 mg Q6HR PO 07/30/17 12:00 07/30/17 17:29 Vital Signs / I&O Vital Signs Date Time Temp Pulse Resp B/P (MAP) Pulse Ox O2 Delivery O2 Flow Rate FiO2 07/30/17 20:01 92 Nasal Cannula 3.00 07/30/17 18:00 Nasal Cannula 3.00 07/30/17 16:00 96.4 99 18 138/63 (88) 97 07/30/17 14:15 114 07/30/17 12:29 100.4 98 19 120/66 (84) 98 07/30/17 12:00 98 07/30/17 10:00 99 07/30/17 08:16 98 Nasal Cannula 3.00 07/30/17 08:00 101.4 105 20 129/64 (85) 97 07/30/17 08:00 105 07/30/17 07:00 118 07/30/17 07:00 97 Nasal Cannula 3.00 07/30/17 06:00 110 07/30/17 04:00 98.9 118 25 135/82 (99) 95 07/30/17 04:00 118 07/30/17 02:00 106 07/30/17 00:00 106 07/30/17 00:00 99.3 106 20 136/60 (85) 92 07/29/17 23:00 118 07/29/17 22:00 90 I/O 07/29/17 07/29/17 07/29/17 07/30/17 07/30/17 07/30/17 07:00 15:00 23:00 07:00 15:00 23:00 Intake Total 1125 ml 1607.62 ml 488 ml 260 ml Output Total 750 ml 300 ml 350 ml 800 ml Balance 375 ml 1307.62 ml 138 ml -540 ml Intake Oral 30 ml 60 ml IV Total 1125 ml 107.62 ml 458 ml 200 ml Other 1500 ml Output Urine Total 750 ml 350 ml 800 ml Estimated Blood Loss 200 ml Other 100 ml # Bowel Movements 0 0 Physical Exam GENERAL: Well-nourished, well-developed patient. SKIN: Warm and dry. HEAD: Normocephalic. EYES: No scleral icterus. No injection or drainage. NECK: Supple, trachea midline. No JVD or lymphadenopathy. CARDIOVASCULAR: Irr Irr without murmurs, gallops, or rubs. RESPIRATORY: Breath sounds equal bilaterally. No accessory muscle use. GASTROINTESTINAL: Abdomen soft, non-tender, nondistended. EXTREMITIES: No cyanosis, or edema. NEUROLOGICAL: Awake, alert, and oriented x 3. Non-focal. Laboratory Laboratory Tests Test 07/30/17 06:17 07/30/17 15:50 White Blood Count 12.2 TH/MM3 Red Blood Count 3.18 MIL/MM3 Hemoglobin 10.0 GM/DL Hematocrit 29.6 % Mean Corpuscular Volume 93.2 FL Mean Corpuscular Hemoglobin 31.5 PG Mean Corpuscular Hemoglobin Concent 33.9 % Red Cell Distribution Width 13.4 % Platelet Count 201 TH/MM3 Mean Platelet Volume 8.6 FL Prothrombin Time 12.5 SEC Prothromb Time International Ratio 1.2 RATIO Blood Urea Nitrogen 19 MG/DL Creatinine 0.75 MG/DL Random Glucose 107 MG/DL Calcium Level 8.5 MG/DL Sodium Level 132 MEQ/L Potassium Level 3.7 MEQ/L Chloride Level 96 MEQ/L Carbon Dioxide Level 28.5 MEQ/L Anion Gap 8 MEQ/L Estimat Glomerular Filtration Rate 74 ML/MIN Assessment and Plan Problem List: (1) Afib ICD Codes: I48.91 - Unspecified atrial fibrillation Status: Acute Plan: Restart Cardizem drip OAC when cleared from surgery standpoint (2) Anticoagulated on Coumadin ICD Codes: Z51.81 - Encounter for therapeutic drug level monitoring; Z79.01 - remote computer terminal operator (current) use of anticoagulants Status: Acute (3) Hypertension ICD Codes: I10 - Essential (primary) hypertension Status: Acute (4) Fractured femoral neck ICD Codes: S72.009A - Fracture of unspecified part of neck of unspecified femur , initial encounter for closed fracture Status: Acute Problem Qualifiers (1) Afib: Qualified Codes: I48.2 - Chronic atrial fibrillation (2) Fractured femoral neck: Qualified Codes: S72.002A - Fracture of unspecified part of neck of left femur , initial encounter for closed fracture Blake Wakefield MD Jul 30, 2017 20:34
[2017-07-30] MEDS: MULTIVITAMINS/MINERALS THERAPEUTIC TAB PO SCH (20:40)
[2017-07-30] MEDS: DOCUSATE SODIUM 100 MG CAP PO SCH (20:40)
[2017-07-30] MEDS ORDERED: DILTIAZEM INJ 125 MG in SODIUM CHLORIDE 0.9% INJ 100 ML IV PRN (20:45)
[2017-07-30] MEDS ORDERED: SODIUM CHLORIDE 0.9% FLUSH 10 ML FLUSH IV FLUSH PRN (20:45)
[2017-07-30] MEDS: ENOXAPARIN SODIUM 30 MG/0.3 ML SYRINGE SQ SCH (22:41)
[2017-07-31] VITALS (14 sets, daily range): BP systolic 108–134; BP diastolic 53–73; PULSE 84–105; RESP 14–21; TEMP 97.8–100.3; O2SAT 92–100
[2017-07-31] MEDS: FAMOTIDINE 20 MG/2 ML VIAL IV PUSH SCH ×2 (02:29→14:20)
[2017-07-31] MEDS: RESP: IPRATROPIUM 0.5 MG/2.5 ML NEB NEB SCH ×6 (03:31→23:51)
[2017-07-31] MEDS: METOPROLOL TARTRATE 25 MG TAB PO SCH ×4 (05:29→18:32)
[2017-07-31 05:35] LABS: INTERNATIONAL NORMALIZED RATIO 1.3 RATIO; PROTHROMBIN TIME - PATIENT 13.1 SEC (9.8-11.6)
[2017-07-31] MEDS: DILTIAZEM HCL 30 MG TAB PO SCH ×3 (06:36→18:32)
[2017-07-31] MEDS: RESP: BUDESONIDE 0.5 MG/2 ML NEB NEB SCH ×2 (07:51→21:06)
[2017-07-31] MEDS: FUROSEMIDE 20 MG TAB PO SCH (08:56)
[2017-07-31] MEDS: MULTIVITAMINS/MINERALS THERAPEUTIC TAB PO SCH ×2 (08:56→20:01)
[2017-07-31] MEDS: DOCUSATE SODIUM 100 MG CAP PO SCH ×2 (09:00→20:14)
[2017-07-31] MEDS: SODIUM CHLORIDE 0.9% FLUSH 10 ML FLUSH IV FLUSH SCH ×2 (09:00→20:44)
[2017-07-31] MEDS: guaiFENesin E.R. 600 MG TAB PO SCH ×2 (09:00→20:01)
[2017-07-31 09:15] LABS: HEMATOCRIT 29.5 % (35.0-46.0); MEAN CELL VOLUME 93.8 FL (80.0-100.0); MEAN CORPUSCULAR HEMOGLOBIN 32.4 PG (27.0-34.0); MEAN CORPUSCULAR HGB CONC 34.6 % (32.0-36.0); PLATELET COUNT 198 TH/MM3 (150-450); RED BLOOD COUNT 3.15 MIL/MM3 (4.00-5.30); RED CELL DISTRIBUTION WIDTH 13.4 % (11.6-17.2); REVIEW FLAG FINAL; WHITE BLOOD COUNT 13.7 TH/MM3 (4.0-11.0)
[2017-07-31 10:19] LABS: BICARBONATE 25.6 MEQ/L (21.0-32.0); POTASSIUM 3.6 MEQ/L (3.5-5.1)
--- NOTE | 2017-07-31 13:23 | PD.ORT.PN ---
Subjective Post Op Day #: 2 Subjective Remarks L hip pain controlled. feeling ok. Objective Vitals Vital Signs Date Time Temp Pulse Resp B/P (MAP) Pulse Ox O2 Delivery O2 Flow Rate FiO2 07/31/17 12:00 99.2 105 21 130/66 (87) 99 07/31/17 12:00 105 07/31/17 10:00 100 07/31/17 08:00 97.8 90 21 132/55 (80) 100 07/31/17 08:00 90 07/31/17 07:52 96 Nasal Cannula 3.00 07/31/17 07:00 100 Nasal Cannula 3.00 07/31/17 06:00 96 07/31/17 04:00 100 07/31/17 04:00 98.7 100 20 134/73 (93) 95 07/31/17 02:00 92 07/31/17 00:00 102 07/31/17 00:00 98.6 102 21 108/53 (71) 92 07/30/17 23:41 96 Nasal Cannula 3.00 07/30/17 22:09 130 180/78 07/30/17 22:00 130 07/30/17 22:00 94 Nasal Cannula 3.00 07/30/17 21:45 92 Nasal Cannula 2.00 07/30/17 20:01 92 Nasal Cannula 3.00 07/30/17 19:30 Nasal Cannula 3.00 07/30/17 18:00 Nasal Cannula 3.00 07/30/17 16:00 96.4 99 18 138/63 (88) 97 07/30/17 14:15 114 I/O 07/30/17 07/30/17 07/30/17 07/31/17 07/31/17 07/31/17 07:00 15:00 23:00 07:00 15:00 23:00 Intake Total 260 ml 86 ml Output Total 800 ml 550 ml Balance -540 ml -464 ml Intake Oral 60 ml 60 ml IV Total 200 ml 26 ml Output Urine Total 800 ml 550 ml # Bowel Movements 0 0 Result Diagram: 07/31/17 0853 07/31/17852 Other Results Laboratory Tests Test 07/31/17 04:09 Prothromb Time International Ratio 1.3 RATIO Prothrombin Time 13.1 SEC (9.8-11.6) Objective Remarks in bed, nad dressing c/d/i neg salma nvi Assessment & Plan Ortho Post Op Day #: 2 Problem List: Assessment and Plan Left femoral neck fracture, subcapital, displaced. Atrial fibrillation with rapid response. s/p L Bipolar Hemiarthroplasty POD#1 wbat - posterior hip precautions ok to maintain dressing unless saturated lovenox or may resume coumadin d/c planning ortho stable f/up ortho dr. lima 2 weeks Rashawn Arroyo Jul 31, 2017 13:23
--- NOTE | 2017-07-31 18:03 | HHI.PR ---
Subjective Remarks 82 YOWF with ILD, Fall Left femur fracture pain better On NC No fever Had Left Hemiarthroplasty on07/29 Objective Vital Signs Vital Signs Date Time Temp Pulse Resp B/P (MAP) Pulse Ox O2 Delivery O2 Flow Rate FiO2 07/31/17 12:00 99.2 105 21 130/66 (87) 99 07/31/17 12:00 105 07/31/17 10:00 100 07/31/17 08:00 97.8 90 21 132/55 (80) 100 07/31/17 08:00 90 07/31/17 07:52 96 Nasal Cannula 3.00 07/31/17 07:00 100 Nasal Cannula 3.00 07/31/17 06:00 96 07/31/17 04:00 100 07/31/17 04:00 98.7 100 20 134/73 (93) 95 07/31/17 02:00 92 07/31/17 00:00 102 07/31/17 00:00 98.6 102 21 108/53 (71) 92 07/30/17 23:41 96 Nasal Cannula 3.00 07/30/17 22:09 130 180/78 07/30/17 22:00 130 07/30/17 22:00 94 Nasal Cannula 3.00 07/30/17 21:45 92 Nasal Cannula 2.00 07/30/17 20:01 92 Nasal Cannula 3.00 07/30/17 19:30 Nasal Cannula 3.00 I/O 07/30/17 07/30/17 07/30/17 07/31/17 07/31/17 07/31/17 06:59 14:59 22:59 06:59 14:59 22:59 Intake Total 260 ml 86 ml Output Total 800 ml 550 ml Balance -540 ml -464 ml Intake Oral 60 ml 60 ml IV Total 200 ml 26 ml Output Urine Total 800 ml 550 ml # Bowel Movements 0 0 Result Diagram: 07/31/1785207/31/17852 Objective Remarks GENERAL: Elderly female, mild sob SKIN: Warm and dry. HEAD: Normocephalic. EYES: No scleral icterus. No injection or drainage. NECK: Supple, trachea midline. No JVD or lymphadenopathy. CARDIOVASCULAR: Regular rate and rhythm without murmurs, gallops, or rubs. RESPIRATORY: Breath sounds equal bilaterally. No accessory muscle use. GASTROINTESTINAL: Abdomen soft, non-tender, nondistended. MUSCULOSKELETAL: No cyanosis, or edema. BACK: Nontender without obvious deformity. No CVA tenderness. A/P Assessment and Plan Interstitial lung disease Left Subcapital femur fracture AF Tremers PLAN: Aerosol nebs Supplement 02 pain controll Encourage PO Laron Skinner MD Jul 31, 2017 18:03
--- NOTE | 2017-07-31 18:16 | HHI.PR ---
Subjective Remarks alert no SOB at rest on O2 Objective Vital Signs Date Time Temp Pulse Resp B/P (MAP) Pulse Ox O2 Delivery O2 Flow Rate FiO2 07/31/17 12:00 99.2 105 21 130/66 (87) 99 07/31/17 12:00 105 07/31/17 10:00 100 07/31/17 08:00 97.8 90 21 132/55 (80) 100 07/31/17 08:00 90 07/31/17 07:52 96 Nasal Cannula 3.00 07/31/17 07:00 100 Nasal Cannula 3.00 07/31/17 06:00 96 07/31/17 04:00 100 07/31/17 04:00 98.7 100 20 134/73 (93) 95 07/31/17 02:00 92 07/31/17 00:00 102 07/31/17 00:00 98.6 102 21 108/53 (71) 92 07/30/17 23:41 96 Nasal Cannula 3.00 07/30/17 22:09 130 180/78 07/30/17 22:00 130 07/30/17 22:00 94 Nasal Cannula 3.00 07/30/17 21:45 92 Nasal Cannula 2.00 07/30/17 20:01 92 Nasal Cannula 3.00 07/30/17 19:30 Nasal Cannula 3.00 I/O 07/30/17 07/30/17 07/30/17 07/31/17 07/31/17 07/31/17 06:59 14:59 22:59 06:59 14:59 22:59 Intake Total 260 ml 86 ml Output Total 800 ml 550 ml Balance -540 ml -464 ml Intake Oral 60 ml 60 ml IV Total 200 ml 26 ml Output Urine Total 800 ml 550 ml # Bowel Movements 0 0 Result Diagram: 07/31/1753 07/31/17852 Objective Remarks GENERAL: SKIN: Warm and dry. HEAD: Atraumatic. Normocephalic. EYES: Pupils equal and round. No scleral icterus. No injection or drainage. ENT: No nasal bleeding or discharge. Mucous membranes pink and moist. NECK: Trachea midline. No JVD. CARDIOVASCULAR: Regular rate and rhythm. RESPIRATORY: No accessory muscle use. few rhonchi to auscultation. Breath sounds equal bilaterally. GASTROINTESTINAL: Abdomen soft, non-tender, nondistended. Hepatic and splenic margins not palpable. MUSCULOSKELETAL: Extremities without clubbing, cyanosis, or edema. No obvious deformities. NEUROLOGICAL: Awake and alert. No obvious cranial nerve deficits. Motor grossly within normal limits. Five out of 5 muscle strength in the arms and legs. Normal speech. PSYCHIATRIC: Appropriate mood and affect; insight and judgment normal. Assessment and Plan Assessment and Plan RESPIRATORY FAIURE PULM FIBROSIS HIP fx PLAN O2 NEEDED PULM TOILET INCREASE ACTIVITY Mary Hernandez MD Jul 31, 2017 18:16
--- NOTE | 2017-07-31 19:11 | HHI.CCPN ---
Subjective Remarks/Hospital Course 82 y/o woman fell while tangled with a folding chair. No syncope. She sustained a left subcapital hip fracture seen best on hip CT scan. Plan repair of hip fracture delayed due to unstable cardiac rhythm, rapid ventricular rate. Started on cardizem gtt infusion in PACU, will be transported to [facility]. She has permanent a-fib and takes propranolol and coumadin. INR subtherapeutic on arrival. 07/28: Rate control excellent, on lopressor, tapering cardizem. INR 1.7 - will transfuse 2 units FFP now and recheck, consider adding two FFP for OR. 07/29: back from OR. back on cardizem drip, but now rate controlled again. BNP slightly elevated this AM. ROS negative. pain controlled. 07/30: Rate control improved. Breathing comfortably. Add diuretic daily. 07/31: came back from floor for HR in the 100s associated with pain. given oxycodone with decrease in HR. added low-dose cardizem po. stable for transfer back to floor. Objective Vital Signs Date Time Temp Pulse Resp B/P (MAP) Pulse Ox O2 Delivery O2 Flow Rate FiO2 07/31/17 16:00 100.3 98 17 117/53 (74) 98 07/31/17 07:52 Nasal Cannula 3.00 07/27/17 10:19 50 Intake and Output 07/31/17 07/31/17 08/01/17 08:00 16:00 00:00 Intake Total 86 ml 80 ml Output Total 550 ml 550 ml Balance -464 ml -470 ml Result Diagram: 07/31/17 0853 07/31/17 0853 Objective Remarks GENERAL: Calm elderly woman. SKIN: Warm and dry. HEAD: Atraumatic. Normocephalic. NECK: Trachea midline. Airway widely patent. CARDIOVASCULAR: Irreg Irreg. Rate 70s-80s. No JVD. RESPIRATORY: No accessory muscle use. GASTROINTESTINAL: Abdomen soft, non-tender, nondistended. No guarding. MUSCULOSKELETAL: 2+ dorsalis pedis pulse bilaterally. Well perfused. NEUROLOGICAL: Awake and alert. No obvious cranial nerve deficits. Motor grossly within normal limits. Speech clear. A/P Assessment and Plan Assessment: 1. Acute fracture left hip (subcapital) 2. Permanent atrial fibrillation. 3. Permanent pacemaker VVI mode. 4. Interstitial Lung Disease. 5. Coagulopathy. Warfarin. 6. pain associated with surgery 7. rapid ventricular response- controlled. Plan: 1. keep metoprolol 50mg po q6h 2. start cardizem 30mg po q6h 3. better control of pain with po and iv pain meds 4. d/c cardizem drip 5. SCDs. 6. Pepcid. 7. transfer to step-down unit. 8. consult hospitalist service. Tao Shields MD Jul 31, 2017 19:11
[2017-08-01] VITALS (13 sets, daily range): BP systolic 118–149; BP diastolic 57–66; PULSE 83–112; RESP 16–20; TEMP 98.2–99.6; O2SAT 91–99
[2017-08-01] MEDS: DILTIAZEM HCL 30 MG TAB PO SCH ×4 (00:03→16:49)
[2017-08-01] MEDS: METOPROLOL TARTRATE 25 MG TAB PO SCH ×4 (00:03→16:50)
[2017-08-01] MEDS: ENOXAPARIN SODIUM 30 MG/0.3 ML SYRINGE SQ SCH (00:04)
[2017-08-01] MEDS: FAMOTIDINE 20 MG/2 ML VIAL IV PUSH SCH (01:46)
[2017-08-01] MEDS: RESP: IPRATROPIUM 0.5 MG/2.5 ML NEB NEB SCH ×5 (02:50→19:05)
[2017-08-01 06:23] LABS: HEMATOCRIT 28.8 % (35.0-46.0); MEAN CELL VOLUME 93.6 FL (80.0-100.0); MEAN CORPUSCULAR HEMOGLOBIN 31.3 PG (27.0-34.0); MEAN CORPUSCULAR HGB CONC 33.4 % (32.0-36.0); PLATELET COUNT 215 TH/MM3 (150-450); RED BLOOD COUNT 3.08 MIL/MM3 (4.00-5.30); RED CELL DISTRIBUTION WIDTH 13.4 % (11.6-17.2); REVIEW FLAG FINAL; WHITE BLOOD COUNT 12.4 TH/MM3 (4.0-11.0)
[2017-08-01 06:39] LABS: INTERNATIONAL NORMALIZED RATIO 1.3 RATIO; PROTHROMBIN TIME - PATIENT 12.7 SEC (9.8-11.6)
[2017-08-01] MEDS: RESP: BUDESONIDE 0.5 MG/2 ML NEB NEB SCH ×2 (08:10→19:05)
[2017-08-01] MEDS: guaiFENesin E.R. 600 MG TAB PO SCH ×2 (08:37→21:28)
[2017-08-01] MEDS: MULTIVITAMINS/MINERALS THERAPEUTIC TAB PO SCH ×2 (08:37→21:28)
[2017-08-01] MEDS: DOCUSATE SODIUM 100 MG CAP PO SCH ×2 (08:37→21:28)
[2017-08-01] MEDS: FUROSEMIDE 20 MG TAB PO SCH (08:37)
[2017-08-01] MEDS: SODIUM CHLORIDE 0.9% FLUSH 10 ML FLUSH IV FLUSH SCH ×2 (08:38→21:28)
--- NOTE | 2017-08-01 10:01 | HHI.PR ---
Subjective Remarks patient is awake and alert, working with therapist voided spontaenously- 2x- urine loks dark and concentrated complains of dry mouth more awake and alert, oriented to person and carried out conversation and responded approrpiately minimal pain Objective Vitals Vital Signs Date Time Temp Pulse Resp B/P (MAP) Pulse Ox O2 Delivery O2 Flow Rate FiO2 08/01/17 08:14 97 Nasal Cannula 2.00 08/01/17 08:00 98.3 83 20 118/57 (77) 94 08/01/17 04:17 100 08/01/17 04:00 99.6 103 20 126/63 (84) 95 08/01/17 00:00 Nasal Cannula 3.00 08/01/17 00:00 99.4 108 20 131/63 (85) 99 08/01/17 00:00 99 07/31/17 23:53 98 Nasal Cannula 3.00 07/31/17 23:00 Nasal Cannula 3.00 07/31/17 22:09 89 07/31/17 21:58 99.0 84 20 117/56 (76) 97 07/31/17 21:07 98 Nasal Cannula 3.00 07/31/17 20:00 96 07/31/17 20:00 98.9 96 14 110/59 (76) 99 07/31/17 16:00 100.3 98 17 117/53 (74) 98 07/31/17 16:00 102 07/31/17 12:00 99.2 105 21 130/66 (87) 99 07/31/17 12:00 105 07/31/17 10:00 100 I/O 07/31/17 07/31/17 07/31/17 08/01/17 08/01/17 08/01/17 07:00 15:00 23:00 07:00 15:00 23:00 Intake Total 86 ml 80 ml Output Total 550 ml 550 ml 125 ml Balance -464 ml -470 ml -125 ml Intake Oral 60 ml 80 ml IV Total 26 ml Output Urine Total 550 ml 550 ml 125 ml # Bowel Movements 0 Result Diagram: 08/01/17 0538 07/31/17 0853 Imaging Last Impressions Hip and Pelvis X-Ray 07/29/17 0837 Signed Impressions: Service Date/Time: Saturday, July 29, 2017 13:20 - CONCLUSION: 1. Status post left hip arthroplasty in anatomic alignment without new acute fracture. Matthew Mckinley MD Chest X-Ray 07/26/172000 Signed Impressions: Service Date/Time: Wednesday, July 26, 2017 21:15 - CONCLUSION: 1. Stable interstitial prominence suggesting some degree of fibrosis. No superimposed acute infiltrate. 2. Compensated cardiomegaly Alo Weiner MD Lower Extremity CT 07/26/17 0000 Signed Impressions: Service Date/Time: Wednesday, July 26, 2017 23:02 - CONCLUSION: Left subcapital femoral neck fracture. Viral Steiner MD Objective Remarks awake and alert, oriented to persons and place, ff all commands anicteric dry oral mucosa no nuchal rigidity lungs- no rales regular rhythm abdomen soft, nontender, bladder distended left hip- post op dressing in place Procedures 07/29- left bipolar hemiarthroplasty Assessment to: Continue Lugo insert reason: Obstruction/Retention A/P Assessment and Plan 82 years old female S/P left bpolar hemiarthroplasty 07/29 for left femoral fracture -Orthopedic ff - Weight bearing as tolerated- PT ff prn pain meds- will limit - adduction pillow Atrial fibrillation history of S/P PM - rate better controlled - on Lopressor 50 mg po q 6. Cardizem 30 mg po q6 - restart Coumadin- ff INR. give 7.5 mg today Interstitial Lung Disease. - Incentive spirometry Pepcid for GI prophylaxis. CM consult for DC planning- will need [facility] Ayan Smith MD Aug 01, 2017 10:01
--- NOTE | 2017-08-01 11:12 | HHI.PR ---
Subjective Remarks 82 YOWF with ILD, Fall Left femur fracture pain better No fever Had Left Hemiarthroplasty on07/29 Feels weak, appetite poor Objective Vital Signs Vital Signs Date Time Temp Pulse Resp B/P (MAP) Pulse Ox O2 Delivery O2 Flow Rate FiO2 08/01/17 08:14 97 Nasal Cannula 2.00 08/01/17 08:00 98.3 83 20 118/57 (77) 94 08/01/17 04:17 100 08/01/17 04:00 99.6 103 20 126/63 (84) 95 08/01/17 00:00 Nasal Cannula 3.00 08/01/17 00:00 99.4 108 20 131/63 (85) 99 08/01/17 00:00 99 07/31/17 23:53 98 Nasal Cannula 3.00 07/31/17 23:00 Nasal Cannula 3.00 07/31/17 22:09 89 07/31/17 21:58 99.0 84 20 117/56 (76) 97 07/31/17 21:07 98 Nasal Cannula 3.00 07/31/17 20:00 96 07/31/17 20:00 98.9 96 14 110/59 (76) 99 07/31/17 16:00 100.3 98 17 117/53 (74) 98 07/31/17 16:00 102 07/31/17 12:00 99.2 105 21 130/66 (87) 99 07/31/17 12:00 105 I/O 07/31/17 07/31/17 07/31/17 08/01/17 08/01/17 08/01/17 07:00 15:00 23:00 07:00 15:00 23:00 Intake Total 86 ml 80 ml Output Total 550 ml 550 ml 125 ml Balance -464 ml -470 ml -125 ml Intake Oral 60 ml 80 ml IV Total 26 ml Output Urine Total 550 ml 550 ml 125 ml # Bowel Movements 0 Result Diagram: 08/01/17 0538 07/31/17 0853 Objective Remarks GENERAL: Elderly female, mild sob SKIN: Warm and dry. HEAD: Normocephalic. EYES: No scleral icterus. No injection or drainage. NECK: Supple, trachea midline. No JVD or lymphadenopathy. CARDIOVASCULAR: Regular rate and rhythm without murmurs, gallops, or rubs. RESPIRATORY: Breath sounds equal bilaterally. No accessory muscle use. GASTROINTESTINAL: Abdomen soft, non-tender, nondistended. MUSCULOSKELETAL: No cyanosis, or edema. BACK: Nontender without obvious deformity. No CVA tenderness. A/P Assessment and Plan Interstitial lung disease Left Subcapital femur fracture AF Tremers PLAN: Aerosol nebs2 pain controll Encourage PO Stable on RA Laron Skinner MD Aug 01, 2017 11:12
[2017-08-01 13:33] LABS: BICARBONATE 28.2 MEQ/L (21.0-32.0); POTASSIUM 3.3 MEQ/L (3.5-5.1)
[2017-08-01] MEDS ORDERED: WARFARIN SOD 7.5 MG TAB PO ONE (16:00)
[2017-08-01] MEDS ORDERED: POTASSIUM BICARBONATE 25 MEQ EFFERVESCENT TAB PO ONE (19:00)
[2017-08-02] VITALS (9 sets, daily range): BP systolic 116–141; BP diastolic 58–77; PULSE 82–110; RESP 16–20; TEMP 98–98.5; O2SAT 93–97
[2017-08-02] MEDS: DILTIAZEM HCL 30 MG TAB PO SCH ×3 (00:08→12:35)
[2017-08-02] MEDS: METOPROLOL TARTRATE 25 MG TAB PO SCH ×3 (00:08→12:35)
[2017-08-02] MEDS: ENOXAPARIN SODIUM 30 MG/0.3 ML SYRINGE SQ SCH (00:08)
[2017-08-02] MEDS: RESP: IPRATROPIUM 0.5 MG/2.5 ML NEB NEB SCH ×4 (00:16→11:55)
[2017-08-02 05:37] LABS: INTERNATIONAL NORMALIZED RATIO 1.3 RATIO; PROTHROMBIN TIME - PATIENT 13.4 SEC (9.8-11.6)
[2017-08-02 05:56] LABS: BICARBONATE 29.4 MEQ/L (21.0-32.0); POTASSIUM 3.6 MEQ/L (3.5-5.1)
[2017-08-02] MEDS: RESP: BUDESONIDE 0.5 MG/2 ML NEB NEB SCH (07:47)
[2017-08-02] MEDS: SODIUM CHLORIDE 0.9% FLUSH 10 ML FLUSH IV FLUSH SCH (08:23)
[2017-08-02] MEDS: guaiFENesin E.R. 600 MG TAB PO SCH (08:23)
[2017-08-02] MEDS: FUROSEMIDE 20 MG TAB PO SCH (08:23)
[2017-08-02] MEDS: MULTIVITAMINS/MINERALS THERAPEUTIC TAB PO SCH (08:23)
[2017-08-02] MEDS: DOCUSATE SODIUM 100 MG CAP PO SCH (08:23)
--- NOTE | 2017-08-02 10:44 | HHI.PR ---
Subjective Remarks wake and alert denies any pain at present needs to be encourage Objective Vitals Vital Signs Date Time Temp Pulse Resp B/P (MAP) Pulse Ox O2 Delivery O2 Flow Rate FiO2 08/02/17 10:29 110 08/02/17 10:18 94 Nasal Cannula 2.00 08/02/17 08:04 98.0 104 19 141/77 (98) 94 08/02/17 07:47 97 Nasal Cannula 2.00 08/02/17 04:45 98.5 89 18 122/59 (80) 95 08/02/17 04:14 91 08/02/17 00:25 96 08/02/17 00:17 97 Nasal Cannula 2.00 08/02/17 00:13 98.4 108 16 131/62 (85) 93 08/01/17 20:41 108 08/01/17 20:07 98.8 104 16 134/66 (88) 94 08/01/17 20:00 94 Nasal Cannula 2.00 08/01/17 16:41 112 08/01/17 16:38 83 08/01/17 16:00 98.6 101 20 149/65 (93) 94 08/01/17 15:13 91 21 08/01/17 12:39 Nasal Cannula 3.00 08/01/17 12:00 98.2 106 20 147/66 (93) 91 08/01/17 11:30 83 I/O 08/01/17 08/01/17 08/01/17 08/02/17 08/02/17 08/02/17 07:00 15:00 23:00 07:00 15:00 23:00 Intake Total 120 ml 60 ml Output Total 125 ml 500 ml Balance -125 ml 120 ml -440 ml Intake Oral 120 ml 60 ml Output Urine Total 125 ml 500 ml Bladder Scan Volume Amount 0 ml # Voids 1 # Bowel Movements 0 1 Result Diagram: 08/01/1753708/02/17516 Imaging Last Impressions Hip and Pelvis X-Ray 07/29/17836 Signed Impressions: Service Date/Time: Saturday, July 29, 2017 13:20 - CONCLUSION: 1. Status post left hip arthroplasty in anatomic alignment without new acute fracture. Matthew Mckinley MD Chest X-Ray 07/26/172000 Signed Impressions: Service Date/Time: Wednesday, July 26, 2017 21:15 - CONCLUSION: 1. Stable interstitial prominence suggesting some degree of fibrosis. No superimposed acute infiltrate. 2. Compensated cardiomegaly Alo Weiner MD Lower Extremity CT 07/26/17 0000 Signed Impressions: Service Date/Time: Wednesday, July 26, 2017 23:02 - CONCLUSION: Left subcapital femoral neck fracture. Viral Steiner MD Objective Remarks awake and alert, oriented to persons and place, ff all commands anicteric dry oral mucosa no nuchal rigidity lungs- no rales irregular rhythm- HR in the 80s abdomen soft, good bowel sounds LE- no edema, sensory grossly intact left hip- post op dressing in place Procedures 07/29- left bipolar hemiarthroplasty Urinary Catheter: Yes Assessment to: Continue Lugo insert reason: Prolonged Immobilization A/P Assessment and Plan 82 years old female S/P left bpolar hemiarthroplasty 07/29 for left femoral fracture -Orthopedic ff - Weight bearing as tolerated- PT ff prn pain meds- will limit - adduction pillow Atrial fibrillation - rate controlled history of S/P PM - rate better controlled - on Lopressor 50 mg po q 6. Cardizem 30 mg po q6 - restart Coumadin- ff INR. give 10 mg today - as OP was on 6 mg daily -FF INR daily - DC Lovenox when INR therpeutic Interstitial Lung Disease. - Incentive spirometry Poor po- pre renal insuffciency -gentle hydration - NS- 60 cc/hr x 1 L - BMP in am - nutrtionist consult on Lovenox + coumadin overlap encourage po fluids and po intake Pepcid for GI prophylaxis. CM consult for DC planning- will need SNF- [facility] today if arranged Aayn Smith MD Aug 02, 2017 10:43
[2017-08-02] MEDS ORDERED: DILT31TA PO (10:56)
[2017-08-02] MEDS ORDERED: METO25TA3 PO (10:56)
[2017-08-02] MEDS ORDERED: Ipratropium Bromide NEB (10:56)
[2017-08-02] MEDS ORDERED: BUDE.5I NEB (10:56)
[2017-08-02] MEDS ORDERED: DOCU1CAP39 PO (10:56)
[2017-08-02] MEDS ORDERED: ENOX30P SQ (10:56)
[2017-08-02] MEDS ORDERED: THERM PO (10:56)
--- NOTE | 2017-08-02 11:01 | HHI.DS ---
Discharge Summary Admitting Diagnosis CBC/BMP: 08/01/17 0538 08/02/17516 Discharge Disposition: Rehab Inpatient Discharge Instructions DIET: Follow Instructions for: Heart Healthy Diet Speech Therapy-Diet Recommends: Regular Follow up Referrals: Orthopedics - 2 Weeks with Rashawn Johns MD New Orders: BASIC METABOLIC PROF - 08/03/17 PROTHROMBIN TIME (PT) - 08/03/17 New Medications: Hydrocodone-Acetaminophen ([place]) 7.5-325 mg Tab 1-2 TAB PO Q6H PRN for PAIN, #90 TAB 0 Refills Budesonide Neb (Pulmicort Respules) 0.5 Mg/2 Ml Neb 0.5 MG NEB Q12HR NEB for PULMO for 10 Days, #60 NEBULE Diltiazem (Cardizem) 30 Mg Tab 30 MG PO Q6HR for afib for 30 Days, TAB Docusate Sodium (Dok) 100 Mg Cap 100 MG PO BID for BM for 10 Days, #20 CAP Enoxaparin Inj (Lovenox Inj) 30 Mg/0.3 Ml Syr 30 MG SQ Q24H for afib/DVT prop for 7 Days, INJECTION Metoprolol Tartrate (Metoprolol Tartrate) 25 Mg Tab 50 MG PO Q6HR for a fib for 30 Days, TAB Multiple Vitamins W/ Minerals (Thera M Plus) 1 Tab 1 TAB PO BID for post op a for 60 Days, #120 TAB [Ipratropium [place]] () 0.5 MG/2.5 ML NEBU 0.5 MG NEB Q4HR NEB for breathing for 14 Days, ML Continued Medications: Warfarin (Warfarin) 6 Mg Tab 6 MG PO DAILY for Blood Clot Prevention, #30 TAB 0 Refills Discontinued Medications: Amlodipine (Amlodipine) 2.5 Mg Tab 2.5 MG PO DAILY for Blood Pressure Management, #30 TAB 0 Refills Propranolol (Propranolol) 40 Mg Tab 40 MG PO DAILY, #60 TAB 0 Refills Ayan Smith MD Aug 02, 2017 11:01
--- NOTE | 2017-08-02 12:22 | HHI.DS ---
Discharge Summary Admission Date Jul 27, 2017 at 02:03 Discharge Date: Aug 02, 2017 Admitting Diagnosis femoral fracture and RVR afib Procedures 07/29- left bipolar hemiarthroplasty Brief History - From Admission This is a pleasant 82-year-old female presents for evaluation of a mechanical fall. She reports that today she was attempting to open a reclining chair when it knocked her over and she landed on her left hip. Denies any head trauma or loss of consciousness. She is complaining of left hip pain which is constant, sharp, worse with movement. Denies headache, neck pain, back pain , chest pain or shortness of breath, nausea or vomiting. She appears to have a history of interstitial lung disease. Pulse oximetry is noted to be 89% on room air, she had a pulmonary function test on May 26, 2016 revealing a baseline oxygen saturation of 89% on room air. She is not on home oxygen. No other complaints. Seen in Emergency room in the presence of her Mr. Murtaza Vázquez, she is having Bronchodilator, Mucolytic, incentive spirometry, she states her Primary transcription specialist is Doctor Laron Skinner may need consult depend of Clinical course, also has Atrial Fibrillation with RVR, at this time NPO for probable intervention later today not yet seen by Orthopedic Surgery and her INR subtherapeutic in 1.6 CBC/BMP: 08/01/17 0538 08/02/17 0517 Significant Findings Laboratory Tests Test 07/30/17 15:50 07/31/17 04:09 07/31/17 08:53 08/01/17 05:38 Blood Urea Nitrogen 19 MG/DL (7-18) 22 MG/DL (7-18) Random Glucose 107 MG/DL (74-106) Sodium Level 132 MEQ/L (136-145) 133 MEQ/L (136-145) Chloride Level 96 MEQ/L (98-107) Estimat Glomerular Filtration Rate 74 ML/MIN (>89) Prothrombin Time 13.1 SEC (9.8-11.6) 12.7 SEC (9.8-11.6) White Blood Count 13.7 TH/MM3 (4.0-11.0) 12.4 TH/MM3 (4.0-11.0) Red Blood Count 3.15 MIL/MM3 (4.00-5.30) 3.08 MIL/MM3 (4.00-5.30) Hemoglobin 10.2 GM/DL (11.6-15.3) 9.6 GM/DL (11.6-15.3) Hematocrit 29.5 % (35.0-46.0) 28.8 % (35.0-46.0) Creatinine 0.49 MG/DL (0.50-1.00) Test 08/01/17 12:40 08/02/17 05:17 Blood Urea Nitrogen 19 MG/DL (7-18) 20 MG/DL (7-18) Sodium Level 133 MEQ/L (136-145) Potassium Level 3.3 MEQ/L (3.5-5.1) Prothrombin Time 13.4 SEC (9.8-11.6) Calcium Level 8.4 MG/DL (8.5-10.1) Imaging Last Impressions Hip and Pelvis X-Ray 07/29/17 0837 Signed Impressions: Service Date/Time: Saturday, July 29, 2017 13:20 - CONCLUSION: 1. Status post left hip arthroplasty in anatomic alignment without new acute fracture. Matthew Mckinley MD Chest X-Ray 07/26/172000 Signed Impressions: Service Date/Time: Wednesday, July 26, 2017 21:15 - CONCLUSION: 1. Stable interstitial prominence suggesting some degree of fibrosis. No superimposed acute infiltrate. 2. Compensated cardiomegaly Alo Weiner MD Lower Extremity CT 07/26/17 0000 Signed Impressions: Service Date/Time: Wednesday, July 26, 2017 23:02 - CONCLUSION: Left subcapital femoral neck fracture. Viral Steiner MD PE at Discharge awake and alert, oriented to persons and place, ff all commands anicteric no nuchal rigidity lungs- no rales irregular rhythm- HR in the 80s abdomen soft, good bowel sounds LE- no edema, sensory grossly intact left hip- post op dressing in place Pt update on day of discharge awake and alert afebrile telemetry0 a fib rate controlled in the 80s Hospital Course 82 years old female S/P left bpolar hemiarthroplasty 07/29 for left femoral fracture -Orthopedic ff - Weight bearing as tolerated- PT ff prn pain meds- will limit - adduction pillow - voiding trial next few days- at [place] Atrial fibrillation history of S/P PM - rate better controlled - on Lopressor 50 mg po q 6. Cardizem 30 mg po q6 - restart Coumadin- ff INR. give 10 mg today - as OP was on 6 mg daily -FF INR daily Interstitial Lung Disease. - Incentive spirometry Poor po- pre renal insuffciency - microbiology supervisor consult in [place] - encourage po fluids on Lovenox + coumadin overlap encourage po fluids and po intake Pepcid for GI prophylaxis. CM consult for DC planning- will need SNF- [facility] today if arranged Pt Condition on Discharge: Good Discharge Disposition: Rehab Inpatient Discharge Time: <= 30 minutes Discharge Instructions DIET: Follow Instructions for: Heart Healthy Diet Speech Therapy-Diet Recommends: Regular Activities you can perform: Weight Bearing as [place] Other Activity Instructions: s/p left MINA- see specific ortho orders Follow up Referrals: Orthopedics - 2 Weeks with Rashawn Johns MD New Medications: Hydrocodone-Acetaminophen ([place]) 7.5-325 mg Tab 1-2 TAB PO Q6H PRN for PAIN, #90 TAB 0 Refills Budesonide Neb (Pulmicort Respules) 0.5 Mg/2 Ml Neb 0.5 MG NEB Q12HR NEB for PULMO for 10 Days, #60 NEBULE Diltiazem (Cardizem) 30 Mg Tab 30 MG PO Q6HR for afib for 30 Days, TAB Docusate Sodium (Dok) 100 Mg Cap 100 MG PO BID for BM for 10 Days, #20 CAP Enoxaparin Inj (Lovenox Inj) 30 Mg/0.3 Ml Syr 30 MG SQ Q24H for afib/DVT prop for 7 Days, INJECTION Metoprolol Tartrate (Metoprolol Tartrate) 25 Mg Tab 50 MG PO Q6HR for a fib for 30 Days, TAB Multiple Vitamins W/ Minerals (Thera M Plus) 1 Tab 1 TAB PO BID for post op a for 60 Days, #120 TAB [Ipratropium [place]] () 0.5 MG/2.5 ML NEBU 0.5 MG NEB Q4HR NEB for breathing for 14 Days, ML Continued Medications: Warfarin (Warfarin) 6 Mg Tab 6 MG PO DAILY for Blood Clot Prevention, #30 TAB 0 Refills Discontinued Medications: Amlodipine (Amlodipine) 2.5 Mg Tab 2.5 MG PO DAILY for Blood Pressure Management, #30 TAB 0 Refills Propranolol (Propranolol) 40 Mg Tab 40 MG PO DAILY, #60 TAB 0 Refills Ayan Smith MD Aug 02, 2017 12:22
[2017-08-02 13:50] LABS: BICARBONATE 30.8 MEQ/L (21.0-32.0); POTASSIUM 3.5 MEQ/L (3.5-5.1)
[2017-08-02] MEDS ORDERED: WARFARIN SOD 10 MG TAB PO ONE ×2 (16:00)
[2017-08-03] MEDS ORDERED: WARFARIN SOD 6 MG TAB PO SCH (16:00)
== END 2017-08-02 14:38 | DRG 470 ==
LOC: NEPC 19:40 → NEDA 07-27 02:03 → N03A 07-27 17:29 → N06A 07-30 12:47 → N03A 07-30 21:35 → N04A 07-31 21:58
PROVIDERS: ADMIT Internal Medicine; ATTEND Internal Medicine
PROC: 0T9B70Z Drainage of Bladder with Drainage Device, Via Natural or Artificial Opening (ICD-10-PCS; principal; 2017-07-27)
PROC: 0SRS0JA Replacement of Left Hip Joint, Femoral Surface with Synthetic Substitute, Uncemented, Open Approach (ICD-10-PCS; 2017-07-29)
PROC: 30233K1 Transfusion of Nonautologous Frozen Plasma into Peripheral Vein, Percutaneous Approach (ICD-10-PCS; 2017-07-29)
DX: S72.012A Unspecified intracapsular fracture of left femur, initial encounter for closed fracture (principal); J84.10 Pulmonary fibrosis, unspecified; I48.2 Chronic atrial fibrillation; J98.4 Other disorders of lung; I10 Essential (primary) hypertension; F41.9 Anxiety disorder, unspecified; G25.0 Essential tremor; H91.90 Unspecified hearing loss, unspecified ear; Z86.73 Personal history of transient ischemic attack (TIA), and cerebral infarction without residual deficits; Z95.0 Presence of cardiac pacemaker; Z79.01 Long term (current) use of anticoagulants; M19.072 Primary osteoarthritis, left ankle and foot; M17.12 Unilateral primary osteoarthritis, left knee; K21.9 Gastro-esophageal reflux disease without esophagitis; W18.39XA Other fall on same level, initial encounter; Y93.89 Activity, other specified; Y92.009 Unspecified place in unspecified non-institutional (private) residence as the place of occurrence of the external cause
CPT/HCPCS: 36430; 71010; 73502; 73700; 80048; 82948; 83735; 83880; 85025; 85027; 85610; 85730; 86927; 93005; 94150; 94640; 94664; 96374; 96375; 96376; 99211; C1776; G0463; J0131; J0690; J1200; J1580; J1650; J1940; J2270; J2405; J3370; J3430; J3480; J7120; J7613; J7626; J7644; L1830; P9017